=== PATIENT | female | born 1995 | race Caucasian/White ===

== ENCOUNTER 2019-04-23 22:56 | Emergency (ER) | payer OTHER ==
[2019-04-23] MEDS ORDERED: SODIUM CHLORIDE 0.9% 1,000 ML IV STA (23:17)
--- NOTE | 2019-04-23 23:18 | ED ---
General Adult HPI - General Chief complaint: Syncope Stated complaint: Syncope Time Seen by Provider: 04/23/19 23:04 Source: patient Mode of arrival: wheelchair Limitations: no limitations - History of Present Illness Initial comments: Patient is a 24-year-old female who significant past medical history presenting to emergency Department with chief complaint of a syncopal episode. Patient states the incident occurred about 2 hours prior to ED arrival. Patient states that she stood up, felt dizzy, vomited and felt like she was going to pass out. She called her from the other room and when he came in, the patient was already on ground. states the patient did not have a traumatic fall as she was able to go down gradually. states that she had some confusion for a few seconds after the syncopal episode. Denies any shaking episodes. Patient denies a history of epilepsy. Patient states there is low probability for . Currently, patient does report mild lightheadedness but denies any dizziness. She does report some right-sided chest tightness without any radiation. Denies any shortness of breath or cough. Denies definite Episodes or blurry vision. - Related Data Allergies Allergy/AdvReac Type Severity Reaction Status Date / Time No Known Allergies Allergy Verified 04/23/19 23:02 Review of Systems ROS Statement: Those systems with pertinent positive or pertinent negative responses have been documented in the HPI. ROS Other: All systems not noted in ROS Statement are negative. Past Medical History Past Medical History: GERD/Reflux History of Any Multi-Drug Resistant Organisms: None Reported Past Surgical History: No Surgical Hx Reported Past Psychological History: Anxiety Smoking Status: Current every day smoker Past Alcohol Use History: Rare Past Drug Use History: Marijuana General Exam Limitations: no limitations General appearance: alert, in no apparent distress Head exam: Present: atraumatic, normocephalic, normal inspection Eye exam: Present: normal appearance, PERRL, EOMI Pupils: Present: normal accommodation ENT exam: Present: normal exam, normal oropharynx, mucous membranes moist, TM's normal bilaterally, normal external ear exam Neck exam: Present: normal inspection, full ROM Respiratory exam: Present: normal lung sounds bilaterally. Absent: wheezes, rales, chest wall tenderness Cardiovascular Exam: Present: regular rate, normal rhythm, normal heart sounds Extremities exam: Present: normal inspection, full ROM Back exam: Present: normal inspection, full ROM Neurological exam: Present: alert, oriented X3, CN II-XII intact, normal gait Psychiatric exam: Present: normal affect, normal mood Skin exam: Present: warm, dry, intact, normal color Course Vital Signs 04/23/19 04/23/19 04/24/19 22:59 23:45 01:04 Temperature 99.1 F 98.0 F Pulse Rate 87 80 Respiratory 20 18 Rate Blood Pressure 89/53 115/70 101/69 O2 Sat by Pulse 98 96 Oximetry EKG Findings - EKG Comments: EKG Findings:: Sinus rhythm, first-degree AV block. Ventricular rate 88, GA interval 202, QRS duration 90, QTc 425. Medical Decision Making - Medical Decision Making Patient is a 24-year-old female no significant past medical history presenting to emergency Department with a chief complaint of a syncopal episode. Patient did have one syncopal episodes with no postictal state. This occurred after she stood up and vomited. Patient has no previous history of seizures or syncopal episodes. Physical examination is unremarkable. Patient is only complaining of mild lightheadedness at the moment. EKG shows normal sinus rhythm with first- degree AV block. On initial evaluation patient is slightly hypotensive. Patient given fluids. Reevaluation patient reports feeling better. CBC shows mild leukocytosis which I suspect is secondary to the emesis. Initial troponin is negative. Chest x-rays unremarkable. Patient is not . I suspect the patient had either a vasovagal episode or orthostatic hypotension which cau ses her to have a syncopal episode. Patient did have slight ketones in the urine suggesting possible dehydration. Patient advised to follow-up with primary care. Strict return parameters were thoroughly discussed with patient was understanding and agreeable. Case discussed with physician. - Lab Data Result diagrams: 04/23/19 23:41 04/23/19 23:41 Lab Results 04/23/19 04/23/19 04/23/19 Range/Units 23:41 23:41 23:41 WBC 12.6 H (3.8-10.6) k/uL RBC 3.96 (3.80-5.40) m/uL Hgb 12.2 (11.4-16.0) gm/dL Hct 36.6 (34.0-46.0) % MCV 92.4 (80.0-100.0) fL MCH 30.8 (25.0-35.0) pg MCHC 33.4 (31.0-37.0) g/dL RDW 12.4 (11.5-15.5) % Plt Count 158 (150-450) k/uL Neutrophils % 87 % Lymphocytes % 7 % Monocytes % 3 % Eosinophils % 1 % Basophils % 1 % Neutrophils # 11.1 H (1.3-7.7) k/uL Lymphocytes # 0.9 L (1.0-4.8) k/uL Monocytes # 0.4 (0-1.0) k/uL Eosinophils # 0.1 (0-0.7) k/uL Basophils # 0.1 (0-0.2) k/uL Sodium 137 (137-145) mmol/L Potassium 3.8 (3.5-5.1) mmol/L Chloride 105 (98-107) mmol/L Carbon Dioxide 24 (22-30) mmol/L Anion Gap 8 mmol/L BUN 11 (7-17) mg/dL Creatinine 0.76 (0.52-1.04) mg/dL Est GFR (CKD-EPI)AfAm >90 (>60 ml/min/1.73 sqM) Est GFR (CKD-EPI)NonAf >90 (>60 ml/min/1.73 sqM) Glucose 126 H (74-99) mg/dL Calcium 9.1 (8.4-10.2) mg/dL Total Bilirubin 0.4 (0.2-1.3) mg/dL AST 32 (14-36) U/L ALT 24 (4-34) U/L Alkaline Phosphatase 38 (38-126) U/L Troponin I <0.012 (0.000-0.034) ng/mL Total Protein 6.3 (6.3-8.2) g/dL Albumin 4.0 (3.5-5.0) g/dL Urine Color Urine Appearance (Clear) Urine pH (5.0-8.0) Ur Specific [place] (1.001-1.035) Urine Protein (Negative) Urine Glucose (UA) (Negative) Urine Ketones (Negative) Urine Blood (Negative) Urine Nitrite (Negative) Urine Bilirubin (Negative) Urine Urobilinogen (<2.0) mg/dL Ur Leukocyte Esterase (Negative) Urine RBC (0-5) /hpf Urine WBC (0-5) /hpf Ur Squamous Epith Cells (0-4) /hpf Urine Bacteria (None) /hpf Hyaline Casts (0-2) /lpf Urine Mucus (None) /hpf Urine HCG, Qual (Not Detectd) 04/23/19 04/23/19 Range/Units 23:41 23:41 WBC (3.8-10.6) k/uL RBC (3.80-5.40) m/uL Hgb (11.4-16.0) gm/dL Hct (34.0-46.0) % MCV (80.0-100.0) fL MCH (25.0-35.0) pg MCHC (31.0-37.0) g/dL RDW (11.5-15.5) % Plt Count (150-450) k/uL Neutrophils % % Lymphocytes % % Monocytes % % Eosinophils % % Basophils % % Neutrophils # (1.3-7.7) k/uL Lymphocytes # (1.0-4.8) k/uL Monocytes # (0-1.0) k/uL Eosinophils # (0-0.7) k/uL Basophils # (0-0.2) k/uL Sodium (137-145) mmol/L Potassium (3.5-5.1) mmol/L Chloride (98-107) mmol/L Carbon Dioxide (22-30) mmol/L Anion Gap mmol/L BUN (7-17) mg/dL Creatinine (0.52-1.04) mg/dL Est GFR (CKD-EPI)AfAm (>60 ml/min/1.73 sqM) Est GFR (CKD-EPI)NonAf (>60 ml/min/1.73 sqM) Glucose (74-99) mg/dL Calcium (8.4-10.2) mg/dL Total Bilirubin (0.2-1.3) mg/dL AST (14-36) U/L ALT (4-34) U/L Alkaline Phosphatase (38-126) U/L Troponin I (0.000-0.034) ng/mL Total Protein (6.3-8.2) g/dL Albumin (3.5-5.0) g/dL Urine Color Yellow Urine Appearance Cloudy H (Clear) Urine pH 6.5 (5.0-8.0) Ur Specific [place] 1.019 (1.001-1.035) Urine Protein 1+ H (Negative) Urine Glucose (UA) Negative (Negative) Urine Ketones Trace H (Negative) Urine Blood Negative (Negative) Urine Nitrite Negative (Negative) Urine Bilirubin Negative (Negative) Urine Urobilinogen 3.0 (<2.0) mg/dL Ur Leukocyte Esterase Trace H (Negative) Urine RBC 2 (0-5) /hpf Urine WBC 3 (0-5) /hpf Ur Squamous Epith Cells 7 H (0-4) /hpf Urine Bacteria Rare H (None) /hpf Hyaline Casts 101 H (0-2) /lpf Urine Mucus Many H (None) /hpf Urine HCG, Qual Not Detected (Not Detectd) Disposition Clinical Impression: Syncopal episodes Disposition: HOME SELF-CARE Condition: Stable Instructions (If sedation given, give patient instructions): Syncope (DC) Additional Instructions: Please follow up with primary care. Please return to emergency department if symptoms worsen. Is patient prescribed a controlled substance at d/c from ED?: No Referrals: Nonstaff,Physician [Primary Care Provider] - 1-2 days Time of Disposition: 01:13
[2019-04-23 23:50] LABS: Basophils # (A) 0.1 k/uL (0-0.2); Basophils % (A) 1 %; Eosinophils # (A) 0.1 k/uL (0-0.7); Eosinophils % (A) 1 %; HCT 36.6 % (34.0-46.0); HGB 12.2 gm/dL (11.4-16.0); Lymphocytes # (A) 0.9 k/uL (1.0-4.8); Lymphocytes % (A) 7 %; MCH 30.8 pg (25.0-35.0); MCHC 33.4 g/dL (31.0-37.0); MCV 92.4 fL (80.0-100.0); Mean Platelet Volume 8.1; Monocytes # (A) 0.4 k/uL (0-1.0); Monocytes % (A) 3 %; Neutrophils # (A) 11.1 k/uL (1.3-7.7); Neutrophils % (A) 87 %; Platelet Count 158 k/uL (150-450); RBC 3.96 m/uL (3.80-5.40); RDW 12.4 % (11.5-15.5); WBC 12.6 k/uL (3.8-10.6)
[2019-04-24] LABS: ALT 24 U/L (4-34); AST 32 U/L (14-36); African American GFR (CKD) >90 (>60 ml/min/1.73 sqM); Alkaline Phosphatase 38 U/L (38-126); Anion Gap 8 mmol/L; Blood Urea Nitrogen 11 mg/dL (7-17); Calcium 9.1 mg/dL (8.4-10.2); Carbon Dioxide 24 mmol/L (22-30); Chloride 105 mmol/L (98-107); Glucose 126 mg/dL (74-99); Non-African American GFR(CKD) >90 (>60 ml/min/1.73 sqM); Potassium 3.8 mmol/L (3.5-5.1); Sodium 137 mmol/L (137-145); Total Bilirubin 0.4 mg/dL (0.2-1.3); Total Protein 6.3 g/dL (6.3-8.2)
[2019-04-24 00:07] LABS: Appearance,Urine Cloudy (Clear); Bacteria,Urine Rare /hpf; Bilirubin,Urine Negative (Negative); Blood,Urine Negative (Negative); Color,Urine Yellow; Glucose,Urine (UA) Negative (Negative); Hyaline Casts,Urine 101 /lpf (0-2); Ketones,Urine Trace (Negative); Leukocyte Esterase,Urine Trace (Negative); Mucus,Urine Many /hpf; Nitrite,Urine Negative (Negative); PH, Urine 6.5 (5.0-8.0); Protein,Urine 1+ (Negative); RBC,Urine 2 /hpf (0-5); Specific Gravity,Urine 1.019 (1.001-1.035); Squamous Epithelial Cell,Urine 7 /hpf (0-4); WBC,Urine 3 /hpf (0-5)
--- NOTE | 2019-04-24 00:27 | XR ---
EXAMINATION TYPE: XR chest 2V DATE OF EXAM: 04/24/2019 COMPARISON: NONE HISTORY: Syncope TECHNIQUE: FINDINGS: Heart and mediastinum are normal. Lungs are clear. Diaphragm is normal. Bony thorax appears normal. There are chest leads. IMPRESSION: Normal chest.
[2019-04-24 01:07] VITALS: BP 101/69; PULSE 80; RESP 18; TEMP 98
== END 2019-04-24 01:20 | disposition home or self-care (01) ==
LOC: EC 22:56
DX: R55 Syncope and collapse (principal); I44.0 Atrioventricular block, first degree; I95.9 Hypotension, unspecified; D72.829 Elevated white blood cell count, unspecified; R82.4 Acetonuria; R11.10 Vomiting, unspecified; R07.89 Other chest pain; F17.200 Nicotine dependence, unspecified, uncomplicated; Z87.19 Personal history of other diseases of the digestive system
CPT/HCPCS: 36415; 71046; 80053; 81001; 81025; 84484; 85025; 85610; 85730; 93005; 96360; 96361; 99284

== ENCOUNTER → 2020-04-08 | Outpatient (CLI) | payer OTHER ==
--- NOTE | 2020-04-08 15:17 | XR ---
EXAMINATION TYPE: XR knee complete RT DATE OF EXAM: 04/08/2020 COMPARISON: None HISTORY: Sprain TECHNIQUE: Three-view right knee FINDINGS: No acute fracture or dislocation is evident. Joint spaces are preserved. Soft tissues are n ormal. No joint effusion is evident. Follow-up studies can be performed 7-10 days from acute trauma for continued pain. IMPRESSION: 1. Normal three-view right knee
== END | disposition home or self-care (01) ==
LOC: RADXRMAIN 14:39
PROVIDERS: ATTEND Emergency Medicine
DX: S83.8X1A Sprain of other specified parts of right knee, initial encounter (principal)

== ENCOUNTER 2020-10-06 07:25 | Emergency (ER) | payer OTHER ==
[2020-10-06 07:31] VITALS: RESP 18
[2020-10-06] MEDS ORDERED: ONDANSETRON 4 MG/2 ML VIAL IVP STA (07:39)
[2020-10-06] MEDS ORDERED: SODIUM CHLORIDE 0.9% 1,000 ML IV STA (07:39)
[2020-10-06] MEDS ORDERED: MAG HYDROX/AL HYDROX/SIMETH 30 ML, HYOSCYAMINE ELIXIR 10 ML, LIDOCAINE VISCOUS 2% 10 ML PO STA ×3 (07:40)
[2020-10-06] MEDS ORDERED: FAMOTIDINE 20 MG/2 ML VIAL IV STA (07:40)
--- NOTE | 2020-10-06 08:17 | ED ---
General Adult HPI - General Chief complaint: Abdominal Pain Stated complaint: Vomiting/Abd Pain Time Seen by Provider: 10/06/20 07:32 Source: patient, RN notes reviewed Mode of arrival: wheelchair Limitations: no limitations - History of Present Illness Initial comments: 75-year-old female with a past medical history of GERD presents to the emergency room for a chief complaint of abdominal pain. Patient states for the past 3 days she has had nausea and vomiting as well as abdominal pain. States the pain is in the upper abdomen. Patient states she has had this before and was told she had GERD. Patient reports she has been taking medications for GERD and it was getting better however worsen again. Denies fevers or chills. Patient was seen at another ER yesterday in [place] and had a CAT scan with contrast on which we will attempt to obtain.Patient has no other complaints at this time including shortness of breath, chest pain, nausea or vomiting, headache, or visual changes. - Related Data Home Medications Medication Instructions Recorded Confirmed Famotidine [Pepcid] 40 mg PO HS 10/06/20 10/06/20 Hyoscyamine Sulfate [Hyoscyamine 0.125 mg SL Q4H PRN 10/06/20 10/06/20 Sulfate SL] Ondansetron Odt [Zofran Odt] 4 mg PO Q8H PRN 10/06/20 10/06/20 RX: Omeprazole 40 mg PO HS 10/06/20 10/06/20 Previous Rx's Medication Instructions Recorded Dicyclomine [Bentyl] 20 mg PO TID PRN #20 tablet 10/06/20 Allergies Allergy/AdvReac Type Severity Reaction Status Date / Time No Known Allergies Allergy Verified 10/06/20 07:58 Review of Systems ROS Statement: Those systems with pertinent positive or pertinent negative responses have been documented in the HPI. ROS Other: All systems not noted in ROS Statement are negative. Past Medical History Past Medical History: GERD/Reflux History of Any Multi-Drug Resistant Organisms: None Reported Past Surgical History: No Surgical Hx Reported Past Psychological History: Anxiety Smoking Status: Current every day smoker Past Alcohol Use History: Rare Past Drug Use History: Marijuana General Exam Limitations: no limitations General appearance: alert, in no apparent distress Head exam: Present: atraumatic, normocephalic, normal inspection Eye exam: Present: normal appearance, PERRL, EOMI. Absent: scleral icterus, conjunctival injection, periorbital swelling ENT exam: Present: normal exam, mucous membranes moist Neck exam: Present: normal inspection, full ROM. Absent: tenderness, meningismus, lymphadenopathy Respiratory exam: Present: normal lung sounds bilaterally. Absent: respiratory distress, wheezes, rales, rhonchi, stridor Cardiovascular Exam: Present: regular rate, normal rhythm, normal heart sounds. Absent: systolic murmur, diastolic murmur, rubs, gallop, clicks GI/Abdominal exam: Present: soft, tenderness (epigastric tenderness, no lower abdominal tenderness), normal bowel sounds. Absent: distended, guarding, rebound, rigid Course Vital Signs 10/06/20 07:28 Temperature 98.2 F Pulse Rate 63 Respiratory 18 Rate Blood Pressure 153/71 O2 Sat by Pulse 100 Oximetry Medical Decision Making - Medical Decision Making Vitals Are stable. Abdominal exam pertinent for epigastric tenderness. No lower abdominal tenderness. CBC unremarkable. Patient doesn't have evidence of dehydration and CMP with a CO2 of 20, BUN of 18, and ketones in urine. She was given a liter of fluid. Gallbladder ultrasound was limited however noticing abnormality appreciated. Time bile duct is within normal limits. X are KUB showed an overall nonobjective bowel gas pattern. No convincing evidence for pneumoperitoneum. I did attempt to obtain CAT scan with contrast from yesterday from previous hospital however was unable to do so after multiple attempts. Patient reports this is normal. Patient was reevaluated and did have significant improvement in symptoms. Pain is resolved. She does still have some slight nausea and was given an additional dose of Reglan. Patient is stable for discharge home and follow-up with outpatient doctor. She'll return for any worsening symptoms. - Lab Data Result diagrams: 10/06/20 07:46 10/06/20 07:46 Lab Results 10/06/20 10/06/20 10/06/20 Range/Units 07:46 07:46 07:46 WBC 6.0 (3.8-10.6) k/uL RBC 4.57 (3.80-5.40) m/uL Hgb 14.4 (11.4-16.0) gm/dL Hct 41.2 (34.0-46.0) % MCV 90.2 (80.0-100.0) fL MCH 31.5 (25.0-35.0) pg MCHC 34.9 (31.0-37.0) g/dL RDW 12.4 (11.5-15.5) % Plt Count 192 (150-450) k/uL MPV 7.9 Neutrophils % 69 % Lymphocytes % 21 % Monocytes % 7 % Eosinophils % 1 % Basophils % 1 % Neutrophils # 4.1 (1.3-7.7) k/uL Lymphocytes # 1.3 (1.0-4.8) k/uL Monocytes # 0.4 (0-1.0) k/uL Eosinophils # 0.0 (0-0.7) k/uL Basophils # 0.0 (0-0.2) k/uL Sodium 136 L (137-145) mmol/L Potassium 4.2 (3.5-5.1) mmol/L Chloride 104 (98-107) mmol/L Carbon Dioxide 20 L (22-30) mmol/L Anion Gap 12 mmol/L BUN 18 H (7-17) mg/dL Creatinine 0.63 (0.52-1.04) mg/dL Est GFR (CKD-EPI)AfAm >90 (>60 ml/min/1.73 sqM) Est GFR (CKD-EPI)NonAf >90 (>60 ml/min/1.73 sqM) Glucose 105 H (74-99) mg/dL Calcium 9.7 (8.4-10.2) mg/dL Total Bilirubin 0.5 (0.2-1.3) mg/dL AST 42 H (14-36) U/L ALT 27 (4-34) U/L Alkaline Phosphatase 45 (38-126) U/L Total Protein 7.0 (6.3-8.2) g/dL Albumin 4.4 (3.5-5.0) g/dL Amylase 49 (30-110) U/L Lipase 194 (23-300) U/L Urine Color Yellow Urine Appearance Cloudy H (Clear) Urine pH 6.5 (5.0-8.0) Ur Specific [place] 1.027 (1.001-1.035) Urine Protein 1+ H (Negative) Urine Glucose (UA) Negative (Negative) Urine Ketones 3+ H (Negative) Urine Blood Moderate H (Negative) Urine Nitrite Negative (Negative) Urine Bilirubin Negative (Negative) Urine Urobilinogen 4.0 (<2.0) mg/dL Ur Leukocyte Esterase Negative (Negative) Urine RBC 16 H (0-5) /hpf Urine WBC 2 (0-5) /hpf Ur Squamous Epith Cells 2 (0-4) /hpf Amorphous Sediment Occasional H (None) /hpf Urine Mucus Few H (None) /hpf Urine HCG, Qual (Not Detectd) 10/06/20 Range/Units 07:46 WBC (3.8-10.6) k/uL RBC (3.80-5.40) m/uL Hgb (11.4-16.0) gm/dL Hct (34.0-46.0) % MCV (80.0-100.0) fL MCH (25.0-35.0) pg MCHC (31.0-37.0) g/dL RDW (11.5-15.5) % Plt Count (150-450) k/uL MPV Neutrophils % % Lymphocytes % % Monocytes % % Eosinophils % % Basophils % % Neutrophils # (1.3-7.7) k/uL Lymphocytes # (1.0-4.8) k/uL Monocytes # (0-1.0) k/uL Eosinophils # (0-0.7) k/uL Basophils # (0-0.2) k/uL Sodium (137-145) mmol/L Potassium (3.5-5.1) mmol/L Chloride (98-107) mmol/L Carbon Dioxide (22-30) mmol/L Anion Gap mmol/L BUN (7-17) mg/dL Creatinine (0.52-1.04) mg/dL Est GFR (CKD-EPI)AfAm (>60 ml/min/1.73 sqM) Est GFR (CKD-EPI)NonAf (>60 ml/min/1.73 sqM) Glucose (74-99) mg/dL Calcium (8.4-10.2) mg/dL Total Bilirubin (0.2-1.3) mg/dL AST (14-36) U/L ALT (4-34) U/L Alkaline Phosphatase (38-126) U/L Total Protein (6.3-8.2) g/dL Albumin (3.5-5.0) g/dL Amylase (30-110) U/L Lipase (23-300) U/L Urine Color Urine Appearance (Clear) Urine pH (5.0-8.0) Ur Specific [place] (1.001-1.035) Urine Protein (Negative) Urine Glucose (UA) (Negative) Urine Ketones (Negative) Urine Blood (Negative) Urine Nitrite (Negative) Urine Bilirubin (Negative) Urine Urobilinogen (<2.0) mg/dL Ur Leukocyte Esterase (Negative) Urine RBC (0-5) /hpf Urine WBC (0-5) /hpf Ur Squamous Epith Cells (0-4) /hpf Amorphous Sediment (None) /hpf Urine Mucus (None) /hpf Urine HCG, Qual Not Detected (Not Detectd) Disposition Clinical Impression: Nausea & vomiting, Abdominal pain Disposition: HOME SELF-CARE Condition: Good Instructions (If sedation given, give patient instructions): Abdominal Pain (ED), Acute Nausea and Vomiting (ED) Additional Instructions: Please take your Zofran at home for nausea. Take Bentyl for pain. Continue to take your medications for GERD. Follow up with GI. Return to the emergency room for any worsening symptoms. Prescriptions: Dicyclomine [Bentyl] 20 mg PO TID PRN #20 tablet PRN Reason: abdominal pain Is patient prescribed a controlled substance at d/c from ED?: No Referrals: Jason Gayle MD [Primary Care Provider] - 1-2 days Radha Green MD [STAFF PHYSICIAN] - 1-2 days Time of Disposition: 10:01
[2020-10-06 08:19] LABS: Amorphous Sediment,Urine Occasional /hpf; Appearance,Urine Cloudy (Clear); Bilirubin,Urine Negative (Negative); Blood,Urine Moderate (Negative); Color,Urine Yellow; Glucose,Urine (UA) Negative (Negative); Ketones,Urine 3+ (Negative); Leukocyte Esterase,Urine Negative (Negative); Mucus,Urine Few /hpf; Nitrite,Urine Negative (Negative); PH, Urine 6.5 (5.0-8.0); Protein,Urine 1+ (Negative); RBC,Urine 16 /hpf (0-5); Specific Gravity,Urine 1.027 (1.001-1.035); Squamous Epithelial Cell,Urine 2 /hpf (0-4); WBC,Urine 2 /hpf (0-5)
[2020-10-06 08:32] LABS: Basophils % (A) 1 %; Eosinophils % (A) 1 %; HCT 41.2 % (34.0-46.0); HGB 14.4 gm/dL (11.4-16.0); Lymphocytes # (A) 1.3 k/uL (1.0-4.8); Lymphocytes % (A) 21 %; MCH 31.5 pg (25.0-35.0); MCHC 34.9 g/dL (31.0-37.0); MCV 90.2 fL (80.0-100.0); Mean Platelet Volume 7.9; Monocytes # (A) 0.4 k/uL (0-1.0); Monocytes % (A) 7 %; Neutrophils # (A) 4.1 k/uL (1.3-7.7); Neutrophils % (A) 69 %; Platelet Count 192 k/uL (150-450); RBC 4.57 m/uL (3.80-5.40); RDW 12.4 % (11.5-15.5)
[2020-10-06] MEDS ORDERED: HYDROmorphone 0.5 MG/0.5 ML SYRINGE IVP STA (08:44)
[2020-10-06 08:45] LABS: African American GFR (CKD) >90 (>60 ml/min/1.73 sqM); Anion Gap 12 mmol/L; Blood Urea Nitrogen 18 mg/dL (7-17); Calcium 9.7 mg/dL (8.4-10.2); Carbon Dioxide 20 mmol/L (22-30); Chloride 104 mmol/L (98-107); Glucose 105 mg/dL (74-99); Non-African American GFR(CKD) >90 (>60 ml/min/1.73 sqM); Potassium 4.2 mmol/L (3.5-5.1); Sodium 136 mmol/L (137-145)
[2020-10-06 08:46] LABS: ALT 27 U/L (4-34); AST 42 U/L (14-36); Albumin 4.4 g/dL (3.5-5.0); Alkaline Phosphatase 45 U/L (38-126); Amylase 49 U/L (30-110); Lipase 194 U/L (23-300); Total Bilirubin 0.5 mg/dL (0.2-1.3)
--- NOTE | 2020-10-06 09:12 | US ---
EXAMINATION TYPE: US gallbladder DATE OF EXAM: 10/06/2020 COMPARISON: NONE CLINICAL HISTORY: pain RUQ. Pt states ABD pain x 3 days EXAM MEASUREMENTS: Liver Length: 13.1 cm Gallbladder Wall: 0.2 cm CBD: 0.2 cm Right Kidney: 9.6 x 4.3 x 4.5 cm Pt scanned sitting upright/ pt in immense pain and vomiting during exam/ somewhat limited exam Pancreas: wnl Liver: Visualized portions appeared wnl Gallbladder: wnl Evidence for sonographic Devries's sign: Yes CBD: wnl Right Kidney: Limited views appeared wnl IMPRESSION: Limited study however no distinct abnormality appreciated with certainty.
--- NOTE | 2020-10-06 09:24 | XR ---
EXAMINATION TYPE: XR KUB DATE OF EXAM: 10/06/2020 COMPARISON: NONE HISTORY: Pain TECHNIQUE: Single supine KUB image of the abdomen is obtained FINDINGS: Small bowel demonstrates no evidence for dilatation or air fluid levels. Gas and fecal material is seen in non-distended colon. No convincing evidence for pneumoperitoneum. No unusual calcifications. The lung bases are clear. The osseous structures are intact. IMPRESSION: 1. Overall nonobstructive bowel gas pattern.
[2020-10-06] MEDS ORDERED: diphenhydrAMINE 50 MG/ML 1 ML VIAL IVP STA (09:38)
[2020-10-06] MEDS ORDERED: METOCLOPRAMIDE 5 MG/ML 2 ML VIAL IVP STA (09:38)
[2020-10-06 10:36] VITALS: BP 102/65; PULSE 51; TEMP 97.6
== END 2020-10-06 10:23 | disposition home or self-care (01) ==
LOC: EC 07:25
DX: R11.2 Nausea with vomiting, unspecified (principal); R10.10 Upper abdominal pain, unspecified; K21.9 Gastro-esophageal reflux disease without esophagitis; F17.200 Nicotine dependence, unspecified, uncomplicated; Z79.899 Other long term (current) drug therapy
CPT/HCPCS: 36415; 80053; 82150; 83690; 85025; 81001; 81025; 74018; 76705; 99284; 96374; 96375; 96361; J1200; J2765; J2405; J1170

== ENCOUNTER 2020-10-08 08:53 | Emergency (ER) | payer OTHER ==
[2020-10-08] MEDS ORDERED: diphenhydrAMINE 50 MG/ML 1 ML VIAL IVP STA (09:18)
[2020-10-08] MEDS ORDERED: METOCLOPRAMIDE 5 MG/ML 2 ML VIAL IVP STA ×2 (09:18→13:23)
[2020-10-08] MEDS ORDERED: HYDROmorphone 0.5 MG/0.5 ML SYRINGE IVP STA ×2 (09:18→12:47)
[2020-10-08] MEDS ORDERED: FAMOTIDINE 20 MG/2 ML VIAL IV STA (09:18)
[2020-10-08] MEDS ORDERED: SODIUM CHLORIDE 0.9% 2,000 ML IV STA (09:18)
--- NOTE | 2020-10-08 09:25 | ED ---
General Adult HPI - General Chief complaint: Abdominal Pain Stated complaint: Revisit/Abd pain Time Seen by Provider: 10/08/20 09:02 Source: patient Mode of arrival: ambulatory Limitations: no limitations - History of Present Illness Initial comments: 25-year-old female with a past medical history of GERD presents to the emergency room for abdominal pain. Patient states she has had abdominal pain for about a week now. Patient reports it is in her epigastric area. Patient has also had nausea vomiting. Patient was seen over the weekend at their hospital in [place] and had a CAT scan performed. At that time I did attempt to get the results and was unable to do so. She was seen in our ER 2 days ago and had an x-ray and ultrasound of the gallbladder that were negative. Patient states her pain and symptoms did improve for the last day however today worsened again. She was seen her primary care's office who sent her over thinking that she could benefit from admission with scope.Patient has no other complaints at this time including shortness of breath, chest pain, headache, or visual changes. - Related Data Home Medications Medication Instructions Recorded Confirmed Famotidine [Pepcid] 40 mg PO HS 10/06/20 10/08/20 Hyoscyamine Sulfate [Hyoscyamine 0.125 mg SL Q4H PRN 10/06/20 10/08/20 Sulfate SL] Omeprazole 40 mg PO HS 10/06/20 10/08/20 Ondansetron Odt [Zofran Odt] 4 mg PO Q8H PRN 10/06/20 10/08/20 Previous Rx's Medication Instructions Recorded Dicyclomine [Bentyl] 20 mg PO TID PRN #20 tablet 10/06/20 Metoclopramide [Reglan] 10 mg PO QID PRN #20 tab 10/08/20 Allergies Allergy/AdvReac Type Severity Reaction Status Date / Time No Known Allergies Allergy Verified 10/08/20 11:32 Review of Systems ROS Statement: Those systems with pertinent positive or pertinent negative responses have been documented in the HPI. ROS Other: All systems not noted in ROS Statement are negative. Past Medical History Past Medical History: GERD/Reflux History of Any Multi-Drug Resistant Organisms: None Reported Past Surgical History: No Surgical Hx Reported Past Psychological History: Anxiety Smoking Status: Current every day smoker Past Alcohol Use History: Rare Past Drug Use History: Marijuana General Exam Limitations: no limitations General appearance: alert, in no apparent distress Head exam: Present: atraumatic, normocephalic, normal inspection Eye exam: Present: normal appearance, PERRL, EOMI. Absent: scleral icterus, conjunctival injection, periorbital swelling ENT exam: Present: normal exam, mucous membranes moist Neck exam: Present: normal inspection, full ROM. Absent: tenderness, meningismus, lymphadenopathy Respiratory exam: Present: normal lung sounds bilaterally. Absent: respiratory distress, wheezes, rales, rhonchi, stridor Cardiovascular Exam: Present: regular rate, normal rhythm, normal heart sounds. Absent: systolic murmur, diastolic murmur, rubs, gallop, clicks GI/Abdominal exam: Present: soft, tenderness (epigastric and upper abdominal tenderness. No lower abdominal tenderness), normal bowel sounds. Absent: distended, guarding, rebound, rigid Course Vital Signs 10/08/20 08:55 Temperature 98.1 F Pulse Rate 60 Respiratory 22 Rate Blood Pressure 148/89 O2 Sat by Pulse 99 Oximetry Medical Decision Making - Medical Decision Making Vitals are stable. Pt presents for upper abdominal pain and nausea vomiting. Return evaluation initiated. CBC shows mild acidosis likely reactive to vomiting. CMP unremarkable. Urinalysis negative for ketones. Patient was g iven pain medications and vomiting, continues to have mild nausea vomiting. Patient was previously sent in by primary care for admission and patient was initially agreeable to this. I did speak with Dr. Dockery who does accept admission. However on speaking with the patient another time she now refuses admission because she does not want to stay overnight. Patient will follow up with GI, does have an appointment coming up in 2 weeks. Will return here for any worsening symptoms. - Lab Data Result diagrams: 10/08/20 09:25 10/08/20 11:17 Lab Results 10/08/20 10/08/20 10/08/20 Range/Units 09:25 09:25 09:25 WBC 12.0 H (3.8-10.6) k/uL RBC 5.06 (3.80-5.40) m/uL Hgb 16.0 (11.4-16.0) gm/dL Hct 45.9 (34.0-46.0) % MCV 90.7 (80.0-100.0) fL MCH 31.5 (25.0-35.0) pg MCHC 34.8 (31.0-37.0) g/dL RDW 12.4 (11.5-15.5) % Plt Count 222 (150-450) k/uL MPV 7.6 Neutrophils % 83 % Lymphocytes % 11 % Monocytes % 3 % Eosinophils % 1 % Basophils % 0 % Neutrophils # 10.0 H (1.3-7.7) k/uL Lymphocytes # 1.3 (1.0-4.8) k/uL Monocytes # 0.4 (0-1.0) k/uL Eosinophils # 0.2 (0-0.7) k/uL Basophils # 0.0 (0-0.2) k/uL Sodium (137-145) mmol/L Potassium (3.5-5.1) mmol/L Chloride (98-107) mmol/L Carbon Dioxide (22-30) mmol/L Anion Gap mmol/L BUN (7-17) mg/dL Creatinine (0.52-1.04) mg/dL Est GFR (CKD-EPI)AfAm (>60 ml/min/1.73 sqM) Est GFR (CKD-EPI)NonAf (>60 ml/min/1.73 sqM) Glucose (74-99) mg/dL Plasma Lactic Acid Paul (0.7-2.0) mmol/L Calcium (8.4-10.2) mg/dL Total Bilirubin (0.2-1.3) mg/dL AST (14-36) U/L ALT (4-34) U/L Alkaline Phosphatase (38-126) U/L Total Protein (6.3-8.2) g/dL Albumin (3.5-5.0) g/dL Amylase (30-110) U/L Lipase (23-300) U/L Urine Color Yellow Urine Appearance Cloudy H (Clear) Urine pH 6.0 (5.0-8.0) Ur Specific [place] 1.025 (1.001-1.035) Urine Protein Trace H (Negative) Urine Glucose (UA) Negative (Negative) Urine Ketones Negative (Negative) Urine Blood Small H (Negative) Urine Nitrite Negative (Negative) Urine Bilirubin Negative (Negative) Urine Urobilinogen 2.0 (<2.0) mg/dL Ur Leukocyte Esterase Small H (Negative) Urine RBC 5 (0-5) /hpf Urine WBC 3 (0-5) /hpf Ur Squamous Epith Cells 3 (0-4) /hpf Calcium Oxalate Crystal Occasional H (None) /hpf Urine Mucus Many H (None) /hpf Urine HCG, Qual Not Detected (Not Detectd) 10/08/20 10/08/20 Range/Units 11:17 11:17 WBC (3.8-10.6) k/uL RBC (3.80-5.40) m/uL Hgb (11.4-16.0) gm/dL Hct (34.0-46.0) % MCV (80.0-100.0) fL MCH (25.0-35.0) pg MCHC (31.0-37.0) g/dL RDW (11.5-15.5) % Plt Count (150-450) k/uL MPV Neutrophils % % Lymphocytes % % Monocytes % % Eosinophils % % Basophils % % Neutrophils # (1.3-7.7) k/uL Lymphocytes # (1.0-4.8) k/uL Monocytes # (0-1.0) k/uL Eosinophils # (0-0.7) k/uL Basophils # (0-0.2) k/uL Sodium 138 (137-145) mmol/L Potassium 3.8 (3.5-5.1) mmol/L Chloride 107 (98-107) mmol/L Carbon Dioxide 23 (22-30) mmol/L Anion Gap 8 mmol/L BUN 13 (7-17) mg/dL Creatinine 0.61 (0.52-1.04) mg/dL Est GFR (CKD-EPI)AfAm >90 (>60 ml/min/1.73 sqM) Est GFR (CKD-EPI)NonAf >90 (>60 ml/min/1.73 sqM) Glucose 118 H (74-99) mg/dL Plasma Lactic Acid Paul 0.7 (0.7-2.0) mmol/L Calcium 8.0 L (8.4-10.2) mg/dL Total Bilirubin 0.3 (0.2-1.3) mg/dL AST 20 (14-36) U/L ALT 20 (4-34) U/L Alkaline Phosphatase 47 (38-126) U/L Total Protein 6.2 L (6.3-8.2) g/dL Albumin 3.9 (3.5-5.0) g/dL Amylase 66 (30-110) U/L Lipase 276 (23-300) U/L Urine Color Urine Appearance (Clear) Urine pH (5.0-8.0) Ur Specific [place] (1.001-1.035) Urine Protein (Negative) Urine Glucose (UA) (Negative) Urine Ketones (Negative) Urine Blood (Negative) Urine Nitrite (Negative) Urine Bilirubin (Negative) Urine Urobilinogen (<2.0) mg/dL Ur Leukocyte Esterase (Negative) Urine RBC (0-5) /hpf Urine WBC (0-5) /hpf Ur Squamous Epith Cells (0-4) /hpf Calcium Oxalate Crystal (None) /hpf Urine Mucus (None) /hpf Urine HCG, Qual (Not Detectd) Disposition Clinical Impression: Abdominal pain, Nausea & vomiting Disposition: HOME SELF-CARE Condition: Good Instructions (If sedation given, give patient instructions): Abdominal Pain (ED) Additional Instructions: Please follow up with primary care in 1-2 days. Follow up with GI as soon as possible. Return to the ER for any worsening symptoms. Prescriptions: Metoclopramide [Reglan] 10 mg PO QID PRN #20 tab PRN Reason: Nausea Is patient prescribed a controlled substance at d/c from ED?: No Referrals: Jason Gayle MD [Primary Care Provider] - 1-2 days Time of Disposition: 13:24
[2020-10-08 09:37] LABS: Basophils % (A) 0 %; Eosinophils # (A) 0.2 k/uL (0-0.7); Eosinophils % (A) 1 %; HCT 45.9 % (34.0-46.0); Lymphocytes # (A) 1.3 k/uL (1.0-4.8); Lymphocytes % (A) 11 %; MCH 31.5 pg (25.0-35.0); MCHC 34.8 g/dL (31.0-37.0); MCV 90.7 fL (80.0-100.0); Mean Platelet Volume 7.6; Monocytes # (A) 0.4 k/uL (0-1.0); Monocytes % (A) 3 %; Neutrophils % (A) 83 %; Platelet Count 222 k/uL (150-450); RBC 5.06 m/uL (3.80-5.40); RDW 12.4 % (11.5-15.5)
[2020-10-08 09:38] LABS: Appearance,Urine Cloudy (Clear); Bilirubin,Urine Negative (Negative); Blood,Urine Small (Negative); Calcium Oxalate Crystals,Urine Occasional /hpf; Color,Urine Yellow; Glucose,Urine (UA) Negative (Negative); Ketones,Urine Negative (Negative); Leukocyte Esterase,Urine Small (Negative); Mucus,Urine Many /hpf; Nitrite,Urine Negative (Negative); Protein,Urine Trace (Negative); RBC,Urine 5 /hpf (0-5); Specific Gravity,Urine 1.025 (1.001-1.035); Squamous Epithelial Cell,Urine 3 /hpf (0-4); WBC,Urine 3 /hpf (0-5)
[2020-10-08] MEDS ORDERED: ONDANSETRON 4 MG/2 ML VIAL IVP STA (10:33)
[2020-10-08 11:43] LABS: ALT 20 U/L (4-34); AST 20 U/L (14-36); African American GFR (CKD) >90 (>60 ml/min/1.73 sqM); Albumin 3.9 g/dL (3.5-5.0); Alkaline Phosphatase 47 U/L (38-126); Amylase 66 U/L (30-110); Anion Gap 8 mmol/L; Blood Urea Nitrogen 13 mg/dL (7-17); Carbon Dioxide 23 mmol/L (22-30); Chloride 107 mmol/L (98-107); Glucose 118 mg/dL (74-99); Lipase 276 U/L (23-300); Non-African American GFR(CKD) >90 (>60 ml/min/1.73 sqM); Potassium 3.8 mmol/L (3.5-5.1); Sodium 138 mmol/L (137-145); Total Bilirubin 0.3 mg/dL (0.2-1.3); Total Protein 6.2 g/dL (6.3-8.2)
[2020-10-08 14:13] VITALS: BP 152/92; PULSE 78; RESP 18; TEMP 98.9
== END 2020-10-08 14:00 | disposition home or self-care (01) ==
LOC: EC 08:53
DX: R10.10 Upper abdominal pain, unspecified (principal); R11.2 Nausea with vomiting, unspecified; K21.9 Gastro-esophageal reflux disease without esophagitis; F17.200 Nicotine dependence, unspecified, uncomplicated; Z79.899 Other long term (current) drug therapy
CPT/HCPCS: 36415; 80053; 82150; 83605; 83690; 85025; 81001; 81025; 99284; 96374 ×2; 96375; 96376; 96361; J1200; J2765; J2405; J1170

== ENCOUNTER 2020-10-09 13:26 | Emergency (ER) | payer OTHER ==
[2020-10-09 13:33] VITALS: RESP 16; TEMP 98.7
[2020-10-09] MEDS: SODIUM CHLORIDE 0.9% 2,000 ML IV STA (14:12)
[2020-10-09] MEDS: SODIUM CHLORIDE 0.9% 500 ML 500 ML IV STA (14:12)
[2020-10-09] MEDS: diphenhydrAMINE 50 MG/ML 1 ML VIAL IVP STA (14:13)
[2020-10-09] MEDS: FAMOTIDINE 20 MG/2 ML VIAL IV STA (14:13)
[2020-10-09 14:41] LABS: Basophils % (A) 1 %; Eosinophils % (A) 0 %; HGB 14.2 gm/dL (11.4-16.0); Lymphocytes # (A) 1.4 k/uL (1.0-4.8); Lymphocytes % (A) 21 %; MCH 31.8 pg (25.0-35.0); MCHC 35.5 g/dL (31.0-37.0); MCV 89.8 fL (80.0-100.0); Mean Platelet Volume 7.8; Monocytes # (A) 0.3 k/uL (0-1.0); Monocytes % (A) 5 %; Neutrophils # (A) 4.7 k/uL (1.3-7.7); Neutrophils % (A) 72 %; Platelet Count 216 k/uL (150-450); RBC 4.45 m/uL (3.80-5.40); RDW 12.5 % (11.5-15.5); WBC 6.5 k/uL (3.8-10.6)
[2020-10-09] MEDS: MAG HYDROX/AL HYDROX/SIMETH 30 ML CUP PO STA (14:45)
[2020-10-09 14:50] LABS: Amorphous Sediment,Urine Rare /hpf; Appearance,Urine Cloudy (Clear); Bilirubin,Urine Negative (Negative); Blood,Urine Trace (Negative); Color,Urine Yellow; Glucose,Urine (UA) Negative (Negative); Ketones,Urine 1+ (Negative); Leukocyte Esterase,Urine Negative (Negative); Mucus,Urine Rare /hpf; Nitrite,Urine Negative (Negative); Protein,Urine Negative (Negative); RBC,Urine 2 /hpf (0-5); Specific Gravity,Urine 1.013 (1.001-1.035); Squamous Epithelial Cell,Urine 1 /hpf (0-4); Urobilinogen,Urine <2.0 mg/dL (<2.0); WBC,Urine 3 /hpf (0-5)
--- NOTE | 2020-10-09 15:02 | ED ---
Abdominal Pain HPI - General Chief Complaint: Abdominal Pain Stated Complaint: Revisit Abd Pain Time Seen by Provider: 10/09/20 13:46 Source: patient, RN notes reviewed Mode of arrival: wheelchair Limitations: no limitations - History of Present Illness Initial Comments: This is a 25-year-old female presents emergency from chief complaint nausea vomiting abdominal pain. Patient has been seen here several days along with been seen at [facility]. Patient states that she has underlying severe reflux. Patient had a EGD 2 years ago. Patient states she has been placed on multiple medications has not seen GI. Patient currently seen Dr. Gayle. Patient went of upper abdominal pain, cramping throughout patient reports no fevers chills no chest pain patient denies any chance . - Related Data Home Medications Medication Instructions Recorded Confirmed Famotidine [Pepcid] 40 mg PO HS 10/06/20 10/09/20 Hyoscyamine Sulfate [Hyoscyamine 0.125 mg SL Q4H PRN 10/06/20 10/09/20 Sulfate SL] Omeprazole 40 mg PO HS 10/06/20 10/09/20 Ondansetron Odt [Zofran Odt] 4 mg PO Q8H PRN 10/06/20 10/09/20 Previous Rx's Medication Instructions Recorded Dicyclomine [Bentyl] 20 mg PO TID PRN #20 tablet 10/06/20 Metoclopramide [Reglan] 10 mg PO QID PRN #20 tab 10/08/20 Promethazine [Phenergan] 25 mg PO Q6HR #14 tablet 10/09/20 Allergies Allergy/AdvReac Type Severity Reaction Status Date / Time No Known Allergies Allergy Verified 10/09/20 14:16 Review of Systems ROS Statement: Those systems with pertinent positive or pertinent negative responses have been documented in the HPI. ROS Other: All systems not noted in ROS Statement are negative. Past Medical History Past Medical History: GERD/Reflux History of Any Multi-Drug Resistant Organisms: None Reported Past Surgical History: No Surgical Hx Reported Past Psychological History: Anxiety Smoking Status: Current every day smoker Past Alcohol Use History: Rare Past Drug Use History: Marijuana General Exam Limitations: no limitations General appearance: alert, in no apparent distress Head exam: Present: atraumatic, normocephalic, normal inspection Neck exam: Present: normal inspection, full ROM. Absent: tenderness, meningismus, lymphadenopathy Respiratory exam: Present: normal lung sounds bilaterally. Absent: respiratory distress, wheezes, rales, rhonchi, stridor Cardiovascular Exam: Present: regular rate, normal rhythm, normal heart sounds. Absent: systolic murmur, diastolic murmur, rubs, gallop, clicks GI/Abdominal exam: Present: soft, tenderness (Mild upper, epigastric), normal bowel sounds. Absent: distended, guarding, rebound, rigid Back exam: Absent: CVA tenderness (R), CVA tenderness (L) Neurological exam: Present: alert Skin exam: Present: warm, dry, intact, normal color. Absent: rash Course Vital Signs 10/09/20 13:30 Temperature 98.7 F Pulse Rate 63 Respiratory 16 Rate Blood Pressure 149/85 O2 Sat by Pulse 100 Oximetry Medical Decision Making - Medical Decision Making 25-year-old presented for recurrent nausea vomiting, GERD symptoms. Patient feels greatly improved after droperidol and Benadryl. Patient's tolerating oral intake. Labs are unremarkable. Patient we discharged after fluid hydration. - Lab Data Result diagrams: 10/09/20 14:01 10/09/20 14:01 Lab Results 10/09/20 10/09/20 10/09/20 Range/Units 14: 14:01 14:01 WBC 6.5 (3.8-10.6) k/uL RBC 4.45 (3.80-5.40) m/uL Hgb 14.2 (11.4-16.0) gm/dL Hct 40.0 (34.0-46.0) % MCV 89.8 (80.0-100.0) fL MCH 31.8 (25.0-35.0) pg MCHC 35.5 (31.0-37.0) g/dL RDW 12.5 (11.5-15.5) % Plt Count 216 (150-450) k/uL MPV 7.8 Neutrophils % 72 % Lymphocytes % 21 % Monocytes % 5 % Eosinophils % 0 % Basophils % 1 % Neutrophils # 4.7 (1.3-7.7) k/uL Lymphocytes # 1.4 (1.0-4.8) k/uL Monocytes # 0.3 (0-1.0) k/uL Eosinophils # 0.0 (0-0.7) k/uL Basophils # 0.0 (0-0.2) k/uL Sodium (137-145) mmol/L Potassium (3.5-5.1) mmol/L Chloride (98-107) mmol/L Carbon Dioxide (22-30) mmol/L Anion Gap mmol/L BUN (7-17) mg/dL Creatinine (0.52-1.04) mg/dL Est GFR (CKD-EPI)AfAm (>60 ml/min/1.73 sqM) Est GFR (CKD-EPI)NonAf (>60 ml/min/1.73 sqM) Glucose (74-99) mg/dL Calcium (8.4-10.2) mg/dL Total Bilirubin (0.2-1.3) mg/dL AST (14-36) U/L ALT (4-34) U/L Alkaline Phosphatase (38-126) U/L Total Protein (6.3-8.2) g/dL Albumin (3.5-5.0) g/dL Amylase (30-110) U/L Lipase (23-300) U/L Urine Color Yellow Urine Appearance Cloudy H (Clear) Urine pH 7.0 (5.0-8.0) Ur Specific [place] 1.013 (1.001-1.035) Urine Protein Negative (Negative) Urine Glucose (UA) Negative (Negative) Urine Ketones 1+ H (Negative) Urine Blood Trace H (Negative) Urine Nitrite Negative (Negative) Urine Bilirubin Negative (Negative) Urine Urobilinogen <2.0 (<2.0) mg/dL Ur Leukocyte Esterase Negative (Negative) Urine RBC 2 (0-5) /hpf Urine WBC 3 (0-5) /hpf Ur Squamous Epith Cells 1 (0-4) /hpf Amorphous Sediment Rare H (None) /hpf Urine Mucus Rare H (None) /hpf Urine HCG, Qual Not Detected (Not Detectd) Urine Opiates Screen (NotDetected) Ur Oxycodone Screen (NotDetected) Urine Methadone Screen (NotDetected) Ur Propoxyphene Screen (NotDetected) Ur Barbiturates Screen (NotDetected) U Tricyclic Antidepress (NotDetected) Ur Phencyclidine Scrn (NotDetected) Ur Amphetamines Screen (NotDetected) U Methamphetamines Scrn (NotDetected) U Benzodiazepines Scrn (NotDetected) Urine Cocaine Screen (NotDetected) U Marijuana (THC) Screen (NotDetected) 10/09/20 10/09/20 Range/Units 14:01 14:03 WBC (3.8-10.6) k/uL RBC (3.80-5.40) m/uL Hgb (11.4-16.0) gm/dL Hct (34.0-46.0) % MCV (80.0-100.0) fL MCH (25.0-35.0) pg MCHC (31.0-37.0) g/dL RDW (11.5-15.5) % Plt Count (150-450) k/uL MPV Neutrophils % % Lymphocytes % % Monocytes % % Eosinophils % % Basophils % % Neutrophils # (1.3-7.7) k/uL Lymphocytes # (1.0-4.8) k/uL Monocytes # (0-1.0) k/uL Eosinophils # (0-0.7) k/uL Basophils # (0-0.2) k/uL Sodium 137 (137-145) mmol/L Potassium 3.7 (3.5-5.1) mmol/L Chloride 102 (98-107) mmol/L Carbon Dioxide 25 (22-30) mmol/L Anion Gap 10 mmol/L BUN 11 (7-17) mg/dL Creatinine 0.72 (0.52-1.04) mg/dL Est GFR (CKD-EPI)AfAm >90 (>60 ml/min/1.73 sqM) Est GFR (CKD-EPI)NonAf >90 (>60 ml/min/1.73 sqM) Glucose 99 (74-99) mg/dL Calcium 9.4 (8.4-10.2) mg/dL Total Bilirubin 0.3 (0.2-1.3) mg/dL AST 20 (14-36) U/L ALT 19 (4-34) U/L Alkaline Phosphatase 40 (38-126) U/L Total Protein 6.6 (6.3-8.2) g/dL Albumin 4.2 (3.5-5.0) g/dL Amylase 37 (30-110) U/L Lipase 257 (23-300) U/L Urine Color Urine Appearance (Clear) Urine pH (5.0-8.0) Ur Specific [place] (1.001-1.035) Urine Protein (Negative) Urine Glucose (UA) (Negative) Urine Ketones (Negative) Urine Blood (Negative) Urine Nitrite (Negative) Urine Bilirubin (Negative) Urine Urobilinogen (<2.0) mg/dL Ur Leukocyte Esterase (Negative) Urine RBC (0-5) /hpf Urine WBC (0-5) /hpf Ur Squamous Epith Cells (0-4) /hpf Amorphous Sediment (None) /hpf Urine Mucus (None) /hpf Urine HCG, Qual (Not Detectd) Urine Opiates Screen Not Detected (NotDetected) Ur Oxycodone Screen Not Detected (NotDetected) Urine Methadone Screen Not Detected (NotDetected) Ur Propoxyphene Screen Not Detected (NotDetected) Ur Barbiturates Screen Not Detected (NotDetected) U Tricyclic Antidepress Not Detected (NotDetected) Ur Phencyclidine Scrn Not Detected (NotDetected) Ur Amphetamines Screen Not Detected (NotDetected) U Methamphetamines Scrn Not Detected (NotDetected) U Benzodiazepines Scrn Not Detected (NotDetected) Urine Cocaine Screen Not Detected (NotDetected) U Marijuana (THC) Screen Detected H (NotDetected) Disposition Clinical Impression: Nausea & vomiting, Gastritis Disposition: HOME SELF-CARE Condition: Stable Instructions (If sedation given, give patient instructions): Gastritis (ED), Acute Nausea and Vomiting (ED) Additional Instructions: Please return to the Emergency Department if symptoms worsen or any other concerns. Prescriptions: Promethazine [Phenergan] 25 mg PO Q6HR #14 tablet Is patient prescribed a controlled substance at d/c from ED?: No Referrals: Jason Gayle MD [Primary Care Provider] - 1-2 days Time of Disposition: 15:56
[2020-10-09 15:05] LABS: Amphetamine Screen,Urine Not Detected (NotDetected); Barbiturate Screen,Urine Not Detected (NotDetected); Benzodiazepines Screen,Urine Not Detected (NotDetected); Cocaine Screen,Urine Not Detected (NotDetected); Methadone Screen, Urine Not Detected (NotDetected); Opiate Screen,Urine Not Detected (NotDetected); Oxycodone Screen, Urine Not Detected (NotDetected); Phencyclidine Screen,Urine Not Detected (NotDetected); Tricyclic Antidepressant,Urine Not Detected (NotDetected); Urn Cannabinoid Scrn Detected (NotDetected)
[2020-10-09 15:05] LABS: ALT 19 U/L (4-34); AST 20 U/L (14-36); African American GFR (CKD) >90 (>60 ml/min/1.73 sqM); Albumin 4.2 g/dL (3.5-5.0); Alkaline Phosphatase 40 U/L (38-126); Amylase 37 U/L (30-110); Anion Gap 10 mmol/L; Blood Urea Nitrogen 11 mg/dL (7-17); Calcium 9.4 mg/dL (8.4-10.2); Carbon Dioxide 25 mmol/L (22-30); Chloride 102 mmol/L (98-107); Glucose 99 mg/dL (74-99); Lipase 257 U/L (23-300); Non-African American GFR(CKD) >90 (>60 ml/min/1.73 sqM); Potassium 3.7 mmol/L (3.5-5.1); Sodium 137 mmol/L (137-145); Total Bilirubin 0.3 mg/dL (0.2-1.3); Total Protein 6.6 g/dL (6.3-8.2)
[2020-10-09 16:35] VITALS: BP 122/80; PULSE 53
== END 2020-10-09 16:35 | disposition home or self-care (01) ==
LOC: EC 13:26
DX: K29.70 Gastritis, unspecified, without bleeding (principal); K21.9 Gastro-esophageal reflux disease without esophagitis; F17.200 Nicotine dependence, unspecified, uncomplicated; Z79.899 Other long term (current) drug therapy
CPT/HCPCS: 36415; 80053; 82150; 83690; 85025; 81001; 81025; 80306; 99284; 96374; 96375; 96361; J1200; J1790

== ENCOUNTER 2020-10-11 13:16 | Emergency (ER) | payer OTHER ==
[2020-10-11] MEDS ORDERED: SODIUM CHLORIDE 0.9% 1,000 ML IV STA (13:48)
[2020-10-11] MEDS ORDERED: FAMOTIDINE 20 MG/2 ML VIAL IV STA (13:49)
[2020-10-11] MEDS ORDERED: HYDROmorphone 0.5 MG/0.5 ML SYRINGE IVP STA (13:50)
--- NOTE | 2020-10-11 13:52 | ED ---
General Adult HPI - General Chief complaint: Abdominal Pain Stated complaint: revisit - abd pain Time Seen by Provider: 10/11/20 13:40 Source: patient, RN notes reviewed, old records reviewed Mode of arrival: wheelchair Limitations: no limitations - History of Present Illness Initial comments: 25-year-old female who had presented with abdominal pain, recurrent episodes of vomiting. She's had several episodes in the past one week. She has been diagno sed with gastritis. Patient was seen in the emergency department and initial plan was for admission however the patient had felt better and requested to go home. Her symptoms have again worsened. She is using marijuana for recurrent indigestion and has been using this for many years. No fever. - Related Data Home Medications Medication Instructions Recorded Confirmed Famotidine [Pepcid] 40 mg PO HS 10/06/20 10/09/20 Hyoscyamine Sulfate [Hyoscyamine 0.125 mg SL Q4H PRN 10/06/20 10/09/20 Sulfate SL] Omeprazole 40 mg PO HS 10/06/20 10/09/20 Ondansetron Odt [Zofran Odt] 4 mg PO Q8H PRN 10/06/20 10/09/20 Previous Rx's Medication Instructions Recorded Dicyclomine [Bentyl] 20 mg PO TID PRN #20 tablet 10/06/20 Metoclopramide [Reglan] 10 mg PO QID PRN #20 tab 10/08/20 Promethazine [Phenergan] 25 mg PO Q6HR #14 tablet 10/09/20 Allergies Allergy/AdvReac Type Severity Reaction Status Date / Time No Known Allergies Allergy Verified 10/11/20 13:27 Review of Systems ROS Statement: Those systems with pertinent positive or pertinent negative responses have been documented in the HPI. ROS Other: All systems not noted in ROS Statement are negative. Past Medical History Past Medical History: GERD/Reflux History of Any Multi-Drug Resistant Organisms: None Reported Past Surgical History: No Surgical Hx Reported Past Psychological History: Anxiety Smoking Status: Current every day smoker Past Alcohol Use History: Rare Past Drug Use History: Marijuana General Exam Limitations: no limitations General appearance: alert, in distress Head exam: Present: atraumatic, normocephalic Eye exam: Present: normal appearance, PERRL ENT exam: Present: normal exam Neck exam: Present: normal inspection. Absent: tenderness, meningismus Respiratory exam: Present: normal lung sounds bilaterally. Absent: respiratory distress, wheezes Cardiovascular Exam: Present: regular rate, normal rhythm GI/Abdominal exam: Present: soft, tenderness. Absent: distended Extremities exam: Present: normal inspection, normal capillary refill. Absent: pedal edema, calf tenderness Neurological exam: Present: alert, oriented X3, CN II-XII intact. Absent: motor sensory deficit Psychiatric exam: Present: anxious Skin exam: Present: warm, dry, intact. Absent: cyanosis, diaphoretic Course Vital Signs 10/11/20 13:23 Temperature 98.9 F Pulse Rate 65 Respiratory 24 Rate Blood Pressure 147/91 O2 Sat by Pulse 98 Oximetry - Reevaluation(s) Reevaluation #1: 10/11/20 13:50 Patient had been treated successfully with droperidol on recent ER visit. We will attempt trial of droperidol and Pepcid, and Dilaudid. EKG Findings - EKG Comments: EKG Findings:: EKG: Normal sinus rhythm, rate of 73, UT interval 150, QRS duration 84, QTC 420, no ST segment elevation. Medical Decision Making - Medical Decision Making 35-year-old female with recurrent episodes of abdominal pain and nausea vomiting. Patient patient's has had several ER visits in the past week and symptoms are consistent with previous evaluation. She has a normal CBC and normal CMP, mild ketosis on urinalysis consistent with some dehydration. She feels completely better after treatment. She was offered observation for symptom control given the recurrent nature of the symptoms but states she would prefer to call gastroenterology on Monday morning and return if symptoms worsen. - Lab Data Result diagrams: 10/11/20 13:49 10/11/20 13:49 Lab Results 10/11/20 10/11/20 10/11/20 Range/Units 13:49 13:49 13:49 WBC 7.7 (3.8-10.6) k/uL RBC 4.97 (3.80-5.40) m/uL Hgb 15.9 (11.4-16.0) gm/dL Hct 44.5 (34.0-46.0) % MCV 89.5 (80.0-100.0) fL MCH 31.9 (25.0-35.0) pg MCHC 35.7 (31.0-37.0) g/dL RDW 12.5 (11.5-15.5) % Plt Count 252 (150-450) k/uL MPV 7.5 Neutrophils % 81 % Lymphocytes % 13 % Monocytes % 2 % Eosinophils % 2 % Basophils % 1 % Neutrophils # 6.3 (1.3-7.7) k/uL Lymphocytes # 1.0 (1.0-4.8) k/uL Monocytes # 0.2 (0-1.0) k/uL Eosinophils # 0.1 (0-0.7) k/uL Basophils # 0.1 (0-0.2) k/uL Sodium 137 (137-145) mmol/L Potassium 3.9 (3.5-5.1) mmol/L Chloride 102 (98-107) mmol/L Carbon Dioxide 25 (22-30) mmol/L Anion Gap 10 mmol/L BUN 17 (7-17) mg/dL Creatinine 0.72 (0.52-1.04) mg/dL Est GFR (CKD-EPI)AfAm >90 (>60 ml/min/1.73 sqM) Est GFR (CKD-EPI)NonAf >90 (>60 ml/min/1.73 sqM) Glucose 113 H (74-99) mg/dL Calcium 9.8 (8.4-10.2) mg/dL Total Bilirubin 0.4 (0.2-1.3) mg/dL AST 19 (14-36) U/L ALT 21 (4-34) U/L Alkaline Phosphatase 47 (38-126) U/L Total Protein 7.0 (6.3-8.2) g/dL Albumin 4.6 (3.5-5.0) g/dL Amylase 49 (30-110) U/L Lipase 271 (23-300) U/L Urine Color Yellow Urine Appearance Turbid H (Clear) Urine pH 6.5 (5.0-8.0) Ur Specific [place] 1.025 (1.001-1.035) Urine Protein Trace H (Negative) Urine Glucose (UA) Negative (Negative) Urine Ketones 2+ H (Negative) Urine Blood Small H (Negative) Urine Nitrite Negative (Negative) Urine Bilirubin Negative (Negative) Urine Urobilinogen 2.0 (<2.0) mg/dL Ur Leukocyte Esterase Negative (Negative) Urine RBC 9 H (0-5) /hpf Urine WBC 3 (0-5) /hpf Ur Squamous Epith Cells 7 H (0-4) /hpf Amorphous Sediment Moderate H (None) /hpf Urine Mucus Many H (None) /hpf Disposition Clinical Impression: Nausea & vomiting, Abdominal pain Disposition: HOME SELF-CARE Condition: Fair Instructions (If sedation given, give patient instructions): Abdominal Pain (ED) Additional Instructions: These return with worsening or changing symptoms. Is patient prescribed a controlled substance at d/c from ED?: No Referrals: Jason Gayle MD [Primary Care Provider] - 1-2 days Radha Green MD [Family Provider] - 1-2 days Time of Disposition: 15:22
[2020-10-11 14:01] LABS: Basophils # (A) 0.1 k/uL (0-0.2); Basophils % (A) 1 %; Eosinophils # (A) 0.1 k/uL (0-0.7); Eosinophils % (A) 2 %; HCT 44.5 % (34.0-46.0); HGB 15.9 gm/dL (11.4-16.0); Lymphocytes % (A) 13 %; MCH 31.9 pg (25.0-35.0); MCHC 35.7 g/dL (31.0-37.0); MCV 89.5 fL (80.0-100.0); Mean Platelet Volume 7.5; Monocytes # (A) 0.2 k/uL (0-1.0); Monocytes % (A) 2 %; Neutrophils # (A) 6.3 k/uL (1.3-7.7); Neutrophils % (A) 81 %; Platelet Count 252 k/uL (150-450); RBC 4.97 m/uL (3.80-5.40); RDW 12.5 % (11.5-15.5); WBC 7.7 k/uL (3.8-10.6)
[2020-10-11 14:08] LABS: Amorphous Sediment,Urine Moderate /hpf; Appearance,Urine Turbid (Clear); Bilirubin,Urine Negative (Negative); Blood,Urine Small (Negative); Color,Urine Yellow; Glucose,Urine (UA) Negative (Negative); Ketones,Urine 2+ (Negative); Leukocyte Esterase,Urine Negative (Negative); Mucus,Urine Many /hpf; Nitrite,Urine Negative (Negative); PH, Urine 6.5 (5.0-8.0); Protein,Urine Trace (Negative); RBC,Urine 9 /hpf (0-5); Specific Gravity,Urine 1.025 (1.001-1.035); Squamous Epithelial Cell,Urine 7 /hpf (0-4); WBC,Urine 3 /hpf (0-5)
[2020-10-11 14:10] LABS: ALT 21 U/L (4-34); AST 19 U/L (14-36); African American GFR (CKD) >90 (>60 ml/min/1.73 sqM); Albumin 4.6 g/dL (3.5-5.0); Alkaline Phosphatase 47 U/L (38-126); Amylase 49 U/L (30-110); Anion Gap 10 mmol/L; Blood Urea Nitrogen 17 mg/dL (7-17); Calcium 9.8 mg/dL (8.4-10.2); Carbon Dioxide 25 mmol/L (22-30); Chloride 102 mmol/L (98-107); Glucose 113 mg/dL (74-99); Lipase 271 U/L (23-300); Non-African American GFR(CKD) >90 (>60 ml/min/1.73 sqM); Potassium 3.9 mmol/L (3.5-5.1); Sodium 137 mmol/L (137-145); Total Bilirubin 0.4 mg/dL (0.2-1.3)
--- NOTE | 2020-10-11 14:19 | XR ---
EXAMINATION TYPE: XR KUB DATE OF EXAM: 10/11/2020 COMPARISON: 10/06/2020 HISTORY: Abdominal pain TECHNIQUE: 2 views upright FINDINGS: There is no sign of intestinal obstruction or pneumoperitoneum. Fecal pattern is normal. Th ere are no pathologic calcifications over the kidneys. Lung bases are clear. There is no sign of a ma ss. IMPRESSION: Nonacute abdomen. No change.
[2020-10-11 15:38] VITALS: BP 105/62; PULSE 64; RESP 18; TEMP 97.9
== END 2020-10-11 15:37 | disposition home or self-care (01) ==
LOC: EC 13:16
DX: R11.2 Nausea with vomiting, unspecified (principal); R10.9 Unspecified abdominal pain; E88.89 Other specified metabolic disorders; E86.0 Dehydration; F17.200 Nicotine dependence, unspecified, uncomplicated; K21.9 Gastro-esophageal reflux disease without esophagitis; Z79.899 Other long term (current) drug therapy
CPT/HCPCS: 36415; 93005; 80053; 82150; 83690; 85025; 81001; 74018; 99284; 96374; 96375; 96361; J1170; J1790

== ENCOUNTER → 2022-04-20 | Outpatient (CLI) | payer OTHER ==
--- NOTE | 2022-04-20 13:37 | XR ---
EXAMINATION TYPE: XR knee complete RT DATE OF EXAM: 04/20/2022 COMPARISON: 04/08/2020 HISTORY: Contusion to patella TECHNIQUE: 3 view right knee FINDINGS: Joint spaces are preserved. No acute fracture or dislocation is evident. Small joint effusi on may be present. The patella as visualized appears intact. Follow up exams can be performed 7-10 d ays from acute trauma for continued pain. MRI can be performed for evaluation of soft tissues. IMPRESSION: 1. No acute osseous abnormality right knee. 2. There may be a small joint effusion present.
== END | disposition home or self-care (01) ==
LOC: RADXRMAIN 13:16
PROVIDERS: ATTEND Emergency Medicine
DX: S80.01XA Contusion of right knee, initial encounter (principal); X58.XXXA Exposure to other specified factors, initial encounter

== ENCOUNTER 2022-12-21 10:21 | Emergency (ER) | payer BC, OTHER ==
--- NOTE | 2022-12-21 10:27 | ED ---
General Adult HPI - General Source: patient, RN notes reviewed Mode of arrival: ambulatory Limitations: no limitations <Joe Hodge - Last Filed: 12/21/22 10:26> <Anuel Muñiz - Last Filed: 12/21/22 16:08> - General Stated complaint: Abd pain/vomiting Time Seen by Provider: 12/21/22 10:27 - History of Present Illness Initial comments: 27-year-old female presents emergency Department chief complaint nausea vomiting. Patient states it ripped was started. He states she had issues with this a few years ago states that she had multiple ER visits. Patient states that she was diagnosed with gastritis. She does have underlying reflux issues. Patient states she is unable to stop vomiting at this point and feels dehydrated. (Joe Hodge) Patient initially evaluated as a quick note. Presents with epigastric abdominal discomfort, nausea, vomiting. Has a history of acid reflex. Has a history of daily marijuana use. States this has happened previously. Was told she has gastritis. Presents for further evaluation of this time. Endorses nausea. Endorses nonbilious nonbloody emesis. Denies constipation, diarrhea. Denies fevers, chills, chest pain, shortness breath, cough. Denies any urinary complaints. Presents for further evaluation of this time. (Anuel Muñiz) - Related Data Home Medications Medication Instructions Recorded Confirmed Famotidine [Pepcid] 40 mg PO HS 10/06/20 12/21/22 Ondansetron Odt [Zofran Odt] 4 mg PO Q8H PRN 10/06/20 12/21/22 Mag/Aluminum/Sod Bicarb/Alginc 1 tab PO ACHS PRN 12/21/22 12/21/22 [Gaviscon 80-14.2 mg Tab Chew] Pantoprazole [Protonix] 40 mg PO DAILY 12/21/22 12/21/22 Previous Rx's Medication Instructions Recorded Ciprofloxacin HCl [Cipro] 500 mg PO BID 5 Days #10 tab 12/21/22 Metoclopramide [Reglan] 5 mg PO BID 5 Days #10 tab 12/21/22 Allergies Allergy/AdvReac Type Severity Reaction Status Date / Time No Known Allergies Allergy Verified 12/21/22 13:19 Review of Systems ROS Other: All systems not noted in ROS Statement are negative. <Joe Hodge - Last Filed: 12/21/22 10:26> ROS Other: All systems not noted in ROS Statement are negative. <Anuel Muñiz - Last Filed: 12/21/22 16:08> ROS Statement: Those systems with pertinent positive or pertinent negative responses have been documented in the HPI. Review of Systems: CONST: Denies fever EYES: Denies blurry vision ENT: Denies nasal congestion C/V: Denies Chest pain RESP: Denies shortness of breath GI: Endorses abdominal pain : Denies dysuria SKIN: Denies rash. MSK: Denies joint pain. NEURO: Denies headache (Anuel Muñiz) Past Medical History Past Medical History: GERD/Reflux History of Any Multi-Drug Resistant Organisms: None Reported Past Surgical History: No Surgical Hx Reported Past Psychological History: Anxiety Smoking Status: Current every day smoker Past Alcohol Use History: Rare Past Drug Use History: Marijuana <Joe Hodge - Last Filed: 12/21/22 10:26> General Exam Limitations: no limitations General appearance: alert, in no apparent distress Head exam: Present: atraumatic, normocephalic, normal inspection <Joe Hodge - Last Filed: 12/21/22 10:26> <Anuel Muñiz - Last Filed: 12/21/22 16:08> - General Exam Comments Initial Comments: Visual Physical Exam Vital signs reviewed General: Well-appearing, nontoxic, no acute distress. Head: Normocephalic, atraumatic Eyes: PERRLA, EOMI ENT: Airway patent Chest: Nonlabored breathing Skin: No visual rash, normal skin tone Neuro: Alert and oriented 3 Musculoskeletal: No gross abnormalities (Joe Hodge) General: Appears in mild distress secondary to emesis and abdominal pain HEAD: Normal with no signs of head trauma. EYES: PERRLA, EOMI, conjunctiva normal, no discharge. ENT: Hearing grossly intact, normal oropharynx. RESPIRATORY: Clear breath sounds bilaterally. No wheezes, rales, or rhonchi. C/V: Regular rate and rhythm. S1 and S2 auscultated, peripheral pulses 2+ and intact throughout ABD: Abdomen is soft, nondistended. Tender to palpation in the epigastric region. No guarding. No rebound tenderness. No peritoneal signs. EXT: Normal range of motion, no obvious deformity SKIN: No rashes or lesions observed on exposed skin. NEURO: Alert Oriented 4. (Anuel Muñiz) Course Vital Signs 12/21/22 12/21/22 12/21/22 10:33 12:04 15:15 Temperature 97.7 F Pulse Rate 64 90 Respiratory 20 18 20 Rate Blood Pressure 135/82 135/75 129/81 O2 Sat by Pulse 99 Oximetry 12/21/22 16:00 Temperature 97.6 F Pulse Rate 59 L Respiratory 16 Rate Blood Pressure 128/80 O2 Sat by Pulse 99 Oximetry Medical Decision Making <Joe Hodge - Last Filed: 12/21/22 10:26> - Lab Data Result diagrams: 12/21/22 11:25 12/21/22 11:25 <Anuel Muñiz - Last Filed: 12/21/22 16:08> - Medical Decision Making I performed a quick note portion of this Chart signed Joe Hodge PA-C (Joe Hodge) Was pt. sent in by a medical professional or institution (Dr. PA, [facility] [employer], urgent care, hospital, or snf...) When possible be specific @ -No Did you speak to anyone other than the patient for history (EMS, parent, family, police, friend...)? What history was obtained from this source @ -No Did you review nursing and triage notes (agree or disagree)? Why? @ -I reviewed and agree with nursing and triage notes Were old charts reviewed (outside hosp., previous admission, EMS record, old EKG, old radiological studies, urgent care reports/EKG's, snf records)? Report findings @ -No old charts were reviewed Differential Diagnosis (chest pain, altered mental status, abdominal pain women, abdominal pain men, vaginal bleeding, weakness, fever, dyspnea, syncope, headache, dizziness, GI bleed, back pain, seizure, CVA, palpatations, mental health, musculoskeletal)? @ -Differential Abdominal Pain Women: Appendicitis, Cholecystitis, diverticulosis, ischemic bowel, pancreatitis, hepatitis, UTI, gastroenteritis, AAA, incarcerated hernia, bowel obstruction, constipation, inflammatory bowel, hepatitis, peptic ulcer disease, splenic infarction, perforated viscus, vulvitis, ovarian torsion, PID, kidney stone, placenta abruption, this is not meant to be an all-inclusive list EKG interpreted by me (3pts min.). @ -None done X-rays interpreted by me (1pt min.). @ -None done CT interpreted by me (1pt min.). @ -None done U/S interpreted by me (1pt. min.). @ -: Ultrasound reveals no evidence of cholecystitis or acute intra-abdominal process. What testing was considered but not performed or refused? (CT, X-rays, U/S, labs)? Why? @ -None What meds were considered but not given or refused? Why? @ -None Did you discuss the management of the patient with other professionals (professionals i.e. , PA, [employer] [employer], lab, RT, psych nurse, social service technician, coke drawer, teacher, legal officer, rn case management)? Give summary @ -No Was smoking cessation discussed for >3mins.? @ -No Was critical care preformed (if so, how long)? @ -No Were there social determinants of health that impacted care today? How? (Homelessness, low income, unemployed, alcoholism, drug addiction, transportation, low edu. Level, literacy, decrease access to med. care, alf, rehab)? @ -No Was there de-escalation of care discussed even if they declined (Discuss DNR or withdrawal of care, Hospice)? DNR status @ -No What co-morbidities impacted this encounter? (DM, HTN, Smoking, COPD, CAD, Cancer, CVA, ARF, Chemo, Hep., AIDS, mental health diagnosis, sleep apnea, morbid obesity)? @ -None Was patient admitted / discharged? Hospital course, mention meds given and route, prescriptions, significant lab abnormalities, going to OR and other pertinent info. @ -Based the patient's presentation and physical exam, concern for intra- abdominal process at this time. Likely gastritis. She will be symptomatically treated with IV fluids, morphine, Protonix, Reglan, as well as IV fluids. Vital signs within acceptable limits. She was in agreement this plan. Labs are remarkable for a mild leukocytosis of 12.5 which is likely reactive. Patient's labs also were remarkable for slight hyperkalemia likely secondary to the emesis with history with 1 L fluid bolus. Patient's urinalysis shows possible UTI as well. I discussed results with the patient. She is still nauseous and throwing up. She'll be given Haldol and Benadryl and reevaluated. She was in agreement this plan. The urine findings, she'll be started on ciprofloxacin. She was in agree ment with this plan. I will provide the patient with a prescription for ciprofloxacin, Reglan. I instructed the patient to follow up with their PCP in the next 1-3 days. I explained that the patient should return to the emergency department if they experience any worsening symptoms. Strict return precautions were discussed with the patient. The patient expressed understanding of these instructions. I answered all questions that the patient had. The patient was discharged home in good condition with their prescriptions and follow up information. Undiagnosed new problem with uncertain prognosis? @ -No Drug Therapy requiring intensive monitoring for toxicity (Heparin, Nitro, Insulin, Cardizem)? @ -No Were any procedures done? @ -No Diagnosis/symptom? @ -Gastritis, UTI, nausea and vomiting Acute, or Chronic, or Acute on Chronic? @ -Acute Uncomplicated (without systemic symptoms) or Complicated (systemic symptoms)? @ -Complicated Side effects of treatment? @ -No Exacerbation, Progression, or Severe Exacerbation? @ -No Poses a threat to life or bodily function? How? (Chest pain, [place], [place], pneumonia, PE, COPD, DKA, ARF, appy, cholecystitis, CVA, Diverticulitis, Homicidal, Suicidal, threat to staff... and all critical care pts) @ -No (Anuel Muñiz) - Lab Data Lab Results 12/21/22 12/21/22 12/21/22 Range/Units 10:37 10:37 11:25 WBC 12.5 H (3.8-10.6) k/uL RBC 5.12 (3.80-5.40) m/uL Hgb 16.0 (11.4-16.0) gm/dL Hct 48.2 H (34.0-46.0) % MCV 94.2 (80.0-100.0) fL MCH 31.4 (25.0-35.0) pg MCHC 33.3 (31.0-37.0) g/dL RDW 13.1 (11.5-15.5) % Plt Count 170 (150-450) k/uL MPV 9.7 Neutrophils % 87 % Lymphocytes % 8 % Monocytes % 3 % Eosinophils % 1 % Basophils % 0 % Neutrophils # 10.9 H (1.3-7.7) k/uL Lymphocytes # 1.0 (1.0-4.8) k/uL Monocytes # 0.4 (0-1.0) k/uL Eosinophils # 0.1 (0-0.7) k/uL Basophils # 0.0 (0-0.2) k/uL Sodium (137-145) mmol/L Potassium (3.5-5.1) mmol/L Chloride (98-107) mmol/L Carbon Dioxide (22-30) mmol/L Anion Gap mmol/L BUN (7-17) mg/dL Creatinine (0.52-1.04) mg/dL Est GFR (CKD-EPI)AfAm (>60 ml/min/1.73 sqM) Est GFR (CKD-EPI)NonAf (>60 ml/min/1.73 sqM) Glucose (74-99) mg/dL Plasma Lactic Acid Paul (0.7-2.0) mmol/L Calcium (8.4-10.2) mg/dL Total Bilirubin (0.2-1.3) mg/dL AST (14-36) U/L ALT (4-34) U/L Alkaline Phosphatase (38-126) U/L Total Protein (6.3-8.2) g/dL Albumin (3.5-5.0) g/dL Lipase (23-300) U/L Urine Color Yellow Urine Appearance Cloudy H (Clear) Urine pH 6.0 (5.0-8.0) Ur Specific [place] 1.023 (1.001-1.035) Urine Protein 1+ H (Negative) Urine Glucose (UA) Negative (Negative) Urine Ketones 2+ H (Negative) Urine Blood Small H (Negative) Urine Nitrite Positive H (Negative) Urine Bilirubin Negative (Negative) Urine Urobilinogen <2.0 (<2.0) mg/dL Ur Leukocyte Esterase Negative (Negative) Urine RBC 10 H (0-5) /hpf Urine WBC 4 (0-5) /hpf Ur Squamous Epith Cells 4 (0-4) /hpf Urine Bacteria Occasional H (None) /hpf Urine Mucus Moderate H (None) /hpf Urine HCG, Qual Not Detected (Not Detectd) 12/21/22 12/21/22 Range/Units 11:25 11:25 WBC (3.8-10.6) k/uL RBC (3.80-5.40) m/uL Hgb (11.4-16.0) gm/dL Hct (34.0-46.0) % MCV (80.0-100.0) fL MCH (25.0-35.0) pg MCHC (31.0-37.0) g/dL RDW (11.5-15.5) % Plt Count (150-450) k/uL MPV Neutrophils % % Lymphocytes % % Monocytes % % Eosinophils % % Basophils % % Neutrophils # (1.3-7.7) k/uL Lymphocytes # (1.0-4.8) k/uL Monocytes # (0-1.0) k/uL Eosinophils # (0-0.7) k/uL Basophils # (0-0.2) k/uL Sodium 136 L (137-145) mmol/L Potassium 5.2 H (3.5-5.1) mmol/L Chloride 108 H (98-107) mmol/L Carbon Dioxide 17 L (22-30) mmol/L Anion Gap 11 mmol/L BUN 14 (7-17) mg/dL Creatinine 0.61 (0.52-1.04) mg/dL Est GFR (CKD-EPI)AfAm >90 (>60 ml/min/1.73 sqM) Est GFR (CKD-EPI)NonAf >90 (>60 ml/min/1.73 sqM) Glucose 124 H (74-99) mg/dL Plasma Lactic Acid Paul 1.0 (0.7-2.0) mmol/L Calcium 9.9 (8.4-10.2) mg/dL Total Bilirubin 1.3 (0.2-1.3) mg/dL AST 36 (14-36) U/L ALT 16 (4-34) U/L Alkaline Phosphatase 89 (38-126) U/L Total Protein 8.5 H (6.3-8.2) g/dL Albumin 5.2 H (3.5-5.0) g/dL Lipase 159 (23-300) U/L Urine Color Urine Appearance (Clear) Urine pH (5.0-8.0) Ur Specific [place] (1.001-1.035) Urine Protein (Negative) Urine Glucose (UA) (Negative) Urine Ketones (Negative) Urine Blood (Negative) Urine Nitrite (Negative) Urine Bilirubin (Negative) Urine Urobilinogen (<2.0) mg/dL Ur Leukocyte Esterase (Negative) Urine RBC (0-5) /hpf Urine WBC (0-5) /hpf Ur Squamous Epith Cells (0-4) /hpf Urine Bacteria (None) /hpf Urine Mucus (None) /hpf Urine HCG, Qual (Not Detectd) Disposition <Joe Hodge - Last Filed: 12/21/22 10:26> Is patient prescribed a controlled substance at d/c from ED?: No Time of Disposition: 13:45 <Anuel Muñiz - Last Filed: 12/21/22 16:08> Clinical Impression: Gastritis, UTI (urinary tract infection), Nausea and vomiting Disposition: HOME SELF-CARE Condition: Good Instructions (If sedation given, give patient instructions): Acute Nausea and Vomiting (ED) Prescriptions: Ciprofloxacin HCl [Cipro] 500 mg PO BID 5 Days #10 tab Metoclopramide [Reglan] 5 mg PO BID 5 Days #10 tab Referrals: Jason Gayle MD [Primary Care Provider] - 1-2 days
[2022-12-21 11:24] LABS: Appearance,Urine Cloudy (Clear); Bacteria,Urine Occasional /hpf; Bilirubin,Urine Negative (Negative); Blood,Urine Small (Negative); Color,Urine Yellow; Glucose,Urine (UA) Negative (Negative); Ketones,Urine 2+ (Negative); Leukocyte Esterase,Urine Negative (Negative); Mucus,Urine Moderate /hpf; Nitrite,Urine Positive (Negative); Protein,Urine 1+ (Negative); RBC,Urine 10 /hpf (0-5); Specific Gravity,Urine 1.023 (1.001-1.035); Squamous Epithelial Cell,Urine 4 /hpf (0-4); Urobilinogen,Urine <2.0 mg/dL (<2.0); WBC,Urine 4 /hpf (0-5)
[2022-12-21 11:49] LABS: Basophils % (A) 0 %; Eosinophils # (A) 0.1 k/uL (0-0.7); Eosinophils % (A) 1 %; HCT 48.2 % (34.0-46.0); Lymphocytes % (A) 8 %; MCH 31.4 pg (25.0-35.0); MCHC 33.3 g/dL (31.0-37.0); MCV 94.2 fL (80.0-100.0); Mean Platelet Volume 9.7; Monocytes # (A) 0.4 k/uL (0-1.0); Monocytes % (A) 3 %; Neutrophils # (A) 10.9 k/uL (1.3-7.7); Neutrophils % (A) 87 %; Platelet Count 170 k/uL (150-450); RBC 5.12 m/uL (3.80-5.40); RDW 13.1 % (11.5-15.5); WBC 12.5 k/uL (3.8-10.6)
[2022-12-21] MEDS ORDERED: METOCLOPRAMIDE 5 MG/ML 2 ML VIAL IVP STA ×2 (11:52→14:01)
[2022-12-21] MEDS ORDERED: SODIUM CHLORIDE 0.9% 1,000 ML IV STA (11:52)
[2022-12-21] MEDS ORDERED: MORPHINE SULFATE 4 MG/ML SYRINGE IVP STA (11:52)
[2022-12-21] MEDS ORDERED: PANTOPRAZOLE 40 MG/10 ML VIAL IVP STA (11:53)
[2022-12-21 12:33] LABS: ALT 16 U/L (4-34); AST 36 U/L (14-36); African American GFR (CKD) >90 (>60 ml/min/1.73 sqM); Albumin 5.2 g/dL (3.5-5.0); Alkaline Phosphatase 89 U/L (38-126); Anion Gap 11 mmol/L; Blood Urea Nitrogen 14 mg/dL (7-17); Calcium 9.9 mg/dL (8.4-10.2); Carbon Dioxide 17 mmol/L (22-30); Chloride 108 mmol/L (98-107); Glucose 124 mg/dL (74-99); Lipase 159 U/L (23-300); Non-African American GFR(CKD) >90 (>60 ml/min/1.73 sqM); Potassium 5.2 mmol/L (3.5-5.1); Sodium 136 mmol/L (137-145); Total Bilirubin 1.3 mg/dL (0.2-1.3); Total Protein 8.5 g/dL (6.3-8.2)
[2022-12-21] MEDS ORDERED: HYDROmorphone 0.5 MG/0.5 ML SYRINGE IVP STA (12:59)
--- NOTE | 2022-12-21 13:06 | US ---
EXAMINATION TYPE: US gallbladder DATE OF EXAM: 12/21/2022 COMPARISON: 10/06/2020 CLINICAL INDICATION: Female, 27 years old with history of abd pain, n/v; severe epigastric pain nause a and vomiting TECHNIQUE: Multiple sonographic images of the right upper quadrant are obtained. FINDINGS: EXAM MEASUREMENTS: Liver Length: 16.9 Gallbladder Wall: 0.2m CBD: 0.3m Right Kidney: 10.2x5.0x5.4 RADIO PRODUCER NOTES: Pancreas: wnl, duct dilated to 0.2 cm Liver: wnl, enlarged Gallbladder: wnl, images taken in one position due to patient inability to move Evidence for sonographic Devries's sign: No CBD: wnl Right Kidney: wnl exam slightly limited by patient inability to tolerate exam. Pt. was unable to change positions and w as scanned upright. patient vomiting and in severe pain during exam. IMPRESSION: No evidence for acute cholecystitis. No evidence for acute process.
[2022-12-21] MEDS ORDERED: CIPROFLOXACIN HCL 500 MG TAB PO STA (14:03)
[2022-12-21] MEDS ORDERED: HALOPERIDOL LACTATE 5 MG/ML 1 ML VIAL IVP STA (14:58)
[2022-12-21] MEDS ORDERED: diphenhydrAMINE 50 MG/ML 1 ML VIAL IVP STA (14:58)
[2022-12-22 15:43] VITALS: BP 128/80; RESP 16
[2022-12-22 15:44] VITALS: PULSE 59; TEMP 97.6
== END 2022-12-21 16:03 | disposition home or self-care (01) ==
LOC: EC 10:21
DX: K29.70 Gastritis, unspecified, without bleeding (principal); N39.0 Urinary tract infection, site not specified; B96.89 Other specified bacterial agents as the cause of diseases classified elsewhere; K21.9 Gastro-esophageal reflux disease without esophagitis; F12.90 Cannabis use, unspecified, uncomplicated; F17.200 Nicotine dependence, unspecified, uncomplicated; Z79.899 Other long term (current) drug therapy; Z86.59 Personal history of other mental and behavioral disorders
CPT/HCPCS: 99284; 36415; 80053; 83605; 83690; 85025; 81001; 81025; 87086; 76705; 96374; 96375 ×5; 96376; 96361 ×3; J2270; J1200; J1630; J2765; C9113; J1170

== ENCOUNTER → 2023-06-26 | Outpatient (CLI) | payer BC ==
--- NOTE | 2023-06-26 09:13 | US ---
EXAMINATION TYPE: US pelvic complete DATE OF EXAM: 06/26/2023 COMPARISON: NONE CLINICAL INDICATION: Female, 28 years old with history of R19.4 BOWEL FUNCTION; h/o constipation and currently on laxatives, no pelvic complaints, G0 TECHNIQUE: TA. Transabdominal sonographic images of the pelvis were acquired. Date of LMP: 2 weeks ago EXAM MEASUREMENTS: Uterus: 6.7 x 3.9 x 3.1 cm Endometrial Stripe: 0.5 cm Right Ovary: 2.9 x 2.4 x 2.3 cm Left Ovary: 2.5 x 2.6 x 2.8 cm 1. Uterus: Anteverted wnl 2. Endometrium: wnl 3. Right Ovary: 1.4 x x 1.4 x 1.5cm follicle seen 4. Left Ovary: wnl 5. Bilateral Adnexa: wnl 6. Posterior cul-de-sac: wnl IMPRESSION: 1. Endometrium within normal limits for thickness. 2. No evidence for acute process.
== END | disposition home or self-care (01) ==
LOC: RADUSWWP 08:11
PROVIDERS: ATTEND Family Medicine
DX: R19.4 Change in bowel habit (principal)
CPT/HCPCS: 76856

== ENCOUNTER → 2023-10-03 | Outpatient (CLI) | payer BC ==
[2023-10-03 15:25] LABS: ALT 12 U/L (4-34); AST 18 U/L (14-36); African American GFR (CKD) >90 (>60 ml/min/1.73 sqM); Albumin 4.5 g/dL (3.5-5.0); Albumin/Globulin Ratio 2.1; Alkaline Phosphatase 51 U/L (38-126); Anion Gap 6 mmol/L; Blood Urea Nitrogen 10 mg/dL (7-17); Calcium 9.4 mg/dL (8.4-10.2); Carbon Dioxide 23 mmol/L (22-30); Chloride 106 mmol/L (98-107); Globulin 2.1 g/dL; Glucose 90 mg/dL (74-99); Non-African American GFR(CKD) >90 (>60 ml/min/1.73 sqM); Potassium 4.3 mmol/L (3.5-5.1); Sodium 135 mmol/L (137-145); Total Bilirubin 0.4 mg/dL (0.2-1.3); Total Protein 6.6 g/dL (6.3-8.2)
[2023-10-03 17:03] LABS: Basophils % (A) 1 %; Eosinophils % (A) 1 %; HCT 40.8 % (34.0-46.0); Lymphocytes % (A) 29 %; MCH 30.8 pg (25.0-35.0); MCHC 31.9 g/dL (31.0-37.0); MCV 96.4 fL (80.0-100.0); Mean Platelet Volume 8.3; Monocytes # (A) 0.2 k/uL (0-1.0); Monocytes % (A) 4 %; Neutrophils # (A) 4.3 k/uL (1.3-7.7); Neutrophils % (A) 65 %; Platelet Count 214 k/uL (150-450); RBC 4.23 m/uL (3.80-5.40); RDW 12.7 % (11.5-15.5); WBC 6.7 k/uL (3.8-10.6)
== END | disposition home or self-care (01) ==
LOC: LABWHC1 14:43
PROVIDERS: ATTEND Physician Assistant Medical
DX: Z32.01 Encounter for pregnancy test, result positive (principal)
CPT/HCPCS: 36415; 80053; 84443; 84702; 85025; 86850; 86900; 86901

== ENCOUNTER → 2023-10-13 | Outpatient (CLI) | payer BC ==
--- NOTE | 2023-10-13 16:11 | US ---
EXAMINATION TYPE: Transabdominal DATE OF EXAM: 10/13/2023 2:46 PM COMPARISON: Pelvic ultrasound 06/26/2023 CLINICAL INDICATION: Female, 28 years old with history of O99.891 OTH DISEASES AND CONDITIONS COMPLIC ATING P; EXAM PERFORMED: Transvaginal (TV) and Transabdominal (TA) EXAM MEASUREMENTS: GESTATIONAL AGE / DATING Physician Established: ( weeks/ days) EDC: Dates by LMP: 08/09/2023 (9 weeks/2 days) EDC: 05/15/2024 Dates by First Scan: ( weeks/ days) EDC: Dates by Current Scan for: (6 weeks/6 days) EDC: 06/02/2024 MATERNAL ANATOMY Uterus: 8.9 x 3.8 x 5.1 cm Right Ovary: 3.6 x 3.6 x 2.5 Left Ovary: 2.1 x 2.5 x 1.4 Post CDS / Adnexa: WNL Presence of free fluid: No Presence of corpus luteal cyst: No Presence of subchorionic bleed: ? Multiple GESTATION / SURVEY CRL: 5.86 (6 weeks/3 days) MSD: 1.83 (6 weeks/6 days) Yolk Sac (normal less than 6mm): 0.19 Heart Rate: Flicker seen, unable to obtain heart rate due to early gestation bpm Rhythm: Normal IUP: Viable IUP Nuchal Translucency 10-14wks (normal less than 3mm): NA Age Appropriate Anatomy Cord Insertion: NA Limbs: NA Calvarium: NA Date of LMP: Early august Beta HcG (if available): NA Intrauterine identified with yolk sac. Flicker seen for heart rate however unable to obtain due to early gestation. Tiny hypoechoic regions adjacent to the gestational sac likely representing tiny subchronic hemorrhages. IMPRESSION: 1. Intrauterine with ultrasound age of 6 weeks 6 days and expected delivery date of [birth year] 25. heart rate is not detected at this time, likely due to early . Close clinical foll ow-up with serial beta hCG and short-term follow-up ultrasound is recommended. 2. Tiny subchorionic hemorrhages suggested. Close clinical surveillance is recommended.
== END | disposition home or self-care (01) ==
LOC: RADUSWWP 14:21
PROVIDERS: ATTEND Family Medicine
DX: O99.891 Other specified diseases and conditions complicating pregnancy (principal); Z3A.01 Less than 8 weeks gestation of pregnancy
CPT/HCPCS: 76801

== ENCOUNTER → 2023-11-03 | Outpatient (CLI) | payer BC ==
--- NOTE | 2023-11-03 13:51 | US ---
EXAMINATION TYPE: Transabdominal DATE OF EXAM: 11/03/2023 1:28 PM COMPARISON: NONE CLINICAL INDICATION: Female, 28 years old with history of O41.1299 CHORIOAMNIONITIS, UNSPECIFIED TRIM MORGAN,; Pelvic pain, nausea, constipation, follow up EXAM PERFORMED: Transabdominal (TA) EXAM MEASUREMENTS: GESTATIONAL AGE / DATING Physician Established: (9 weeks/5 days) EDC: 06/02/24 Dates by LMP: LMP unknown Dates by First Scan: (9 weeks/5 days) EDC: 06/02/24 Dates by Current Scan for: (9 weeks/4 days) EDC: 06/03/24 MATERNAL ANATOMY Uterus: 10.6 x 6.1 x 6.6cm Right Ovary: 3.4 x 2.5 x 2.4cm Left Ovary: 2.3 x 2.2 x 1.3cm Post CDS / Adnexa: wnl Presence of free fluid: no Presence of corpus luteal cyst: yes, hypoechoic area right ovary = 2.5 x 2.3 x 2.5cm Presence of subchorionic bleed: no GESTATION / SURVEY CRL: 2.7cm (9 weeks/4 days) Yolk Sac (normal less than 6mm): 0.3cm Heart Rate: 163 bpm Rhythm: Normal IUP: Viable IUP Date of LMP: unknown Beta HcG (if available): Not available at this time IMPRESSION: 1. Single viable intrauterine noted.
== END | disposition home or self-care (01) ==
LOC: RADUSWWP 13:07
PROVIDERS: ATTEND Family Medicine
DX: O41.12 Chorioamnionitis (principal); O26.891 Other specified pregnancy related conditions, first trimester; Z3A.09 9 weeks gestation of pregnancy
CPT/HCPCS: 76801

== ENCOUNTER 2023-12-05 05:53 | Emergency (ER) | payer BC ==
[2023-12-05 05:57] VITALS: TEMP 97.3
--- NOTE | 2023-12-05 06:29 | ED ---
Nausea/Vomiting/Diarrhea HPI - General Chief complaint: Nausea/Vomiting/Diarrhea Stated complaint: 14 wks preg, abd pain Time Seen by Provider: 12/05/23 06:02 Source: patient, RN notes reviewed Mode of arrival: wheelchair Limitations: no limitations - History of Present Illness Initial comments: 28-year-old female presents emergency department with chief complaint of nausea vomiting. Started around 8 PM last night. Patient states that she has bad ref lux she also is currently . Patient denies any vaginal bleeding or problems with her . Patient states that she just cannot stop vomiting she feels dehydrated. Patient denies any fevers or chills no chest pain no shortness of breath no dysuria patient offers no other complaints. - Related Data Home Medications Medication Instructions Recorded Confirmed Famotidine [Pepcid] 40 mg PO HS 10/06/20 12/21/22 Ondansetron Odt [Zofran Odt] 4 mg PO Q8H PRN 10/06/20 12/21/22 Mag/Aluminum/Sod Bicarb/Alginc 1 tab PO ACHS PRN 12/21/22 12/21/22 [Gaviscon 80-14.2 mg Tab Chew] Pantoprazole [Protonix] 40 mg PO DAILY 12/21/22 12/21/22 Previous Rx's Medication Instructions Recorded Ciprofloxacin HCl [Cipro] 500 mg PO BID 5 Days #10 tab 12/21/22 Metoclopramide [Reglan] 5 mg PO BID 5 Days #10 tab 12/21/22 Metoclopramide [Reglan] 10 mg PO TID PRN #15 tab 12/05/23 Allergies Allergy/AdvReac Type Severity Reaction Status Date / Time No Known Allergies Allergy Verified 12/05/23 05:57 Review of Systems ROS Statement: Those systems with pertinent positive or pertinent negative responses have been documented in the HPI. ROS Other: All systems not noted in ROS Statement are negative. Past Medical History Past Medical History: GERD/Reflux History of Any Multi-Drug Resistant Organisms: None Reported Past Surgical History: No Surgical Hx Reported Past Psychological History: Anxiety Smoking Status: Former smoker Past Alcohol Use History: Rare Past Drug Use History: Marijuana General Exam Limitations: no limitations General appearance: alert, in no apparent distress Head exam: Present: atraumatic, normocephalic, normal inspection Eye exam: Present: normal appearance, PERRL, EOMI. Absent: scleral icterus, conjunctival injection, periorbital swelling ENT exam: Present: mucous membranes moist Neck exam: Present: normal inspection. Absent: tenderness, meningismus, lymphadenopathy Respiratory exam: Present: normal lung sounds bilaterally. Absent: respiratory distress, wheezes, rales, rhonchi, stridor Cardiovascular Exam: Present: regular rate, normal rhythm, normal heart sounds. Absent: systolic murmur, diastolic murmur, rubs, gallop, clicks GI/Abdominal exam: Present: soft, tenderness, normal bowel sounds. Absent: distended, guarding, rebound, rigid Course Vital Signs 12/05/23 12/05/23 12/05/23 05:54 06:08 09:19 Temperature 97.3 F L Pulse Rate 72 72 74 Respiratory 20 18 16 Rate Blood Pressure 149/78 136/82 120/82 O2 Sat by Pulse 100 100 99 Oximetry Medical Decision Making - Medical Decision Making Was pt. sent in by a medical professional or institution (, PA, CUTTING MACHINE TENDER HELPER, urgent care, hospital, or [facility]...) When possible be specific @ -No Did you speak to anyone other than the patient for history (EMS, parent, family, police, friend...)? What history was obtained from this source @ -No Did you review nursing and triage notes (agree or disagree)? Why? @ -I reviewed and agree with nursing and triage notes Were old charts reviewed (outside hosp., previous admission, EMS record, old EKG, old radiological studies, urgent care reports/EKG's, [facility] records)? Report findings @ -No old charts were reviewed Differential Diagnosis (chest pain, altered mental status, abdominal pain women, abdominal pain men, vaginal bleeding, weakness, fever, dyspnea, syncope, headache, dizziness, GI bleed, back pain, seizure, CVA, palpatations, mental health, musculoskeletal)? @ -Differential Abdominal Pain Women: Appendicitis, Cholecystitis, diverticulosis, ischemic bowel, pancreatitis, hepatitis, UTI, gastroenteritis, AAA, incarcerated hernia, bowel obstruction, constipation, inflammatory bowel, hepatitis, peptic ulcer disease, splenic infarction, perforated viscus, vulvitis, ovarian torsion, PID, kidney stone, p lacenta abruption, this is not meant to be an all-inclusive list EKG interpreted by me (3pts min.). @ -None X-rays interpreted by me (1pt min.). @ -None done CT interpreted by me (1pt min.). @ -None done U/S interpreted by me (1pt. min.). @ -None done What testing was considered but not performed or refused? (CT, X-rays, U/S, labs)? Why? @ -None What meds were considered but not given or refused? Why? @ -None Did you discuss the management of the patient with other professionals (professionals i.e. , PA, CUTTING MACHINE TENDER HELPER, lab, RT, psych nurse, social science teacher, chick room supervisor, teacher, liaison officer, catalytic case operator)? Give summary @ -No Was smoking cessation discussed for >3mins.? @ -No Was critical care preformed (if so, how long)? @ -No Were there social determinants of health that impacted care today? How? (H omelessness, low income, unemployed, alcoholism, drug addiction, transportation, low edu. Level, literacy, decrease access to med. care, care home, rehab)? @ -No Was there de-escalation of care discussed even if they declined (Discuss DNR or withdrawal of care, Hospice)? DNR status @ -No What co-morbidities impacted this encounter? (DM, HTN, Smoking, COPD, CAD, Cancer, CVA, ARF, Chemo, Hep., AIDS, mental health diagnosis, sleep apnea, morbid obesity)? @ -GERD Was patient admitted / discharged? Hospital course, mention meds given and route, prescriptions, significant lab abnormalities, going to OR and other pertinent info. @ -Discharge patient presented for increasing nausea vomiting which she has been having throughout her . Patient has a long history of GERD and in particular medication secondary to nausea and vomiting. Patient has epigastric pain which is improved. Laboratory studies do not show any significant abnormalities. Patient was given antiemetics. Undiagnosed new problem with uncertain prognosis? @ -No Drug Therapy requiring intensive monitoring for toxicity (Heparin, Nitro, Insulin, Cardizem)? @ -No Were any procedures done? @ -No Diagnosis/symptom? @ -Nausea vomiting, GERD Acute, or Chronic, or Acute on Chronic? @ -Acute Uncomplicated (without systemic symptoms) or Complicated (systemic symptoms)? @ -Uncomplicated Side effects of treatment? @ -No Exacerbation, Progression, or Severe Exacerbation? @ -No Poses a threat to life or bodily function? How? (Chest pain, [place], [place], pneumonia, PE, COPD, DKA, ARF, appy, cholecystitis, CVA, Diverticulitis, Homicidal, Suicidal, threat to staff... and all critical care pts) @ -No - Lab Data Result diagrams: 12/05/23 06:20 12/05/23 06:20 Lab Results 12/05/23 12/05/23 12/05/23 Range/Units 06:20 06:20 06:20 WBC 10.1 (3.8-10.6) k/uL RBC 4.16 (3.80-5.40) m/uL Hgb 13.0 (11.4-16.0) gm/dL Hct 39.0 (34.0-46.0) % MCV 93.9 (80.0-100.0) fL MCH 31.2 (25.0-35.0) pg MCHC 33.3 (31.0-37.0) g/dL RDW 12.7 (11.5-15.5) % Plt Count 208 (150-450) k/uL MPV 7.8 Neutrophils % 87 % Lymphocytes % 10 % Monocytes % 2 % Eosinophils % 0 % Basophils % 0 % Neutrophils # 8.8 H (1.3-7.7) k/uL Lymphocytes # 1.0 (1.0-4.8) k/uL Monocytes # 0.2 (0-1.0) k/uL Eosinophils # 0.0 (0-0.7) k/uL Basophils # 0.0 (0-0.2) k/uL Sodium 136 L (137-145) mmol/L Potassium 3.9 (3.5-5.1) mmol/L Chloride 104 (98-107) mmol/L Carbon Dioxide 20 L (22-30) mmol/L Anion Gap 12 mmol/L BUN 11 (7-17) mg/dL Creatinine 0.44 L (0.52-1.04) mg/dL Est GFR (CKD-EPI)AfAm >90 (>60 ml/min/1.73 sqM) Est GFR (CKD-EPI)NonAf >90 (>60 ml/min/1.73 sqM) Glucose 152 H (74-99) mg/dL Calcium 9.7 (8.4-10.2) mg/dL Total Bilirubin 0.5 (0.2-1.3) mg/dL AST 19 (14-36) U/L ALT 12 (4-34) U/L Alkaline Phosphatase 52 (38-126) U/L Total Protein 7.2 (6.3-8.2) g/dL Albumin 4.9 (3.5-5.0) g/dL Lipase 114 (23-300) U/L Urine Color Light Yellow Urine Appearance Turbid H (Clear) Urine pH 8.0 (5.0-8.0) Ur Specific [place] 1.013 (1.001-1.035) Urine Protein Trace H (Negative) Urine Glucose (UA) Negative (Negative) Urine Ketones Trace H (Negative) Urine Blood Small H (Negative) Urine Nitrite Negative (Negative) Urine Bilirubin Negative (Negative) Urine Urobilinogen <2.0 (<2.0) mg/dL Ur Leukocyte Esterase Negative (Negative) Urine RBC 6 H (0-5) /hpf Urine WBC 3 (0-5) /hpf Ur Squamous Epith Cells 2 (0-4) /hpf Amorphous Sediment Many H (None) /hpf Urine Bacteria Moderate H (None) /hpf Urine Mucus Occasional H (None) /hpf Disposition Clinical Impression: , Nausea and vomiting, GERD (gastroesophageal reflux disease) Disposition: HOME SELF-CARE Condition: Stable Instructions (If sedation given, give patient instructions): Acute Nausea and Vomiting (ED) Additional Instructions: Please return to the Emergency Department if symptoms worsen or any other concerns. Prescriptions: Metoclopramide [Reglan] 10 mg PO TID PRN #15 tab PRN Reason: Nausea Is patient prescribed a controlled substance at d/c from ED?: No Referrals: Sadia Smith PAC [REFERRING] - 1-2 days Time of Disposition: 08:46
[2023-12-05] MEDS: METOCLOPRAMIDE 5 MG/ML 2 ML VIAL IVP STA (06:42)
[2023-12-05] MEDS: diphenhydrAMINE 50 MG/ML 1 ML VIAL IVP STA (06:43)
[2023-12-05] MEDS: FAMOTIDINE 20 MG/2 ML VIAL IV STA (06:43)
[2023-12-05] MEDS: SODIUM CHLORIDE 0.9% 2,000 ML IV STA (06:44)
[2023-12-05 07:22] LABS: Basophils % (A) 0 %; Eosinophils % (A) 0 %; Lymphocytes % (A) 10 %; MCH 31.2 pg (25.0-35.0); MCHC 33.3 g/dL (31.0-37.0); MCV 93.9 fL (80.0-100.0); Mean Platelet Volume 7.8; Monocytes # (A) 0.2 k/uL (0-1.0); Monocytes % (A) 2 %; Neutrophils # (A) 8.8 k/uL (1.3-7.7); Neutrophils % (A) 87 %; Platelet Count 208 k/uL (150-450); RBC 4.16 m/uL (3.80-5.40); RDW 12.7 % (11.5-15.5); WBC 10.1 k/uL (3.8-10.6)
[2023-12-05] MEDS: MAG HYDROX/AL HYDROX/SIMETH 30 ML CUP PO STA (07:40)
[2023-12-05 07:46] LABS: ALT 12 U/L (4-34); AST 19 U/L (14-36); African American GFR (CKD) >90 (>60 ml/min/1.73 sqM); Albumin 4.9 g/dL (3.5-5.0); Alkaline Phosphatase 52 U/L (38-126); Anion Gap 12 mmol/L; Blood Urea Nitrogen 11 mg/dL (7-17); Calcium 9.7 mg/dL (8.4-10.2); Carbon Dioxide 20 mmol/L (22-30); Chloride 104 mmol/L (98-107); Glucose 152 mg/dL (74-99); Lipase 114 U/L (23-300); Non-African American GFR(CKD) >90 (>60 ml/min/1.73 sqM); Potassium 3.9 mmol/L (3.5-5.1); Sodium 136 mmol/L (137-145); Total Bilirubin 0.5 mg/dL (0.2-1.3); Total Protein 7.2 g/dL (6.3-8.2)
[2023-12-05 08:04] LABS: Amorphous Sediment,Urine Many /hpf; Appearance,Urine Turbid (Clear); Bacteria,Urine Moderate /hpf; Bilirubin,Urine Negative (Negative); Blood,Urine Small (Negative); Color,Urine Light Yellow; Glucose,Urine (UA) Negative (Negative); Ketones,Urine Trace (Negative); Leukocyte Esterase,Urine Negative (Negative); Mucus,Urine Occasional /hpf; Nitrite,Urine Negative (Negative); Protein,Urine Trace (Negative); RBC,Urine 6 /hpf (0-5); Specific Gravity,Urine 1.013 (1.001-1.035); Squamous Epithelial Cell,Urine 2 /hpf (0-4); Urobilinogen,Urine <2.0 mg/dL (<2.0); WBC,Urine 3 /hpf (0-5)
[2023-12-05] MEDS: LIDOCAINE VISCOUS 2% 15 ML CUP PO ONE (08:38)
[2023-12-05] MEDS: ONDANSETRON 4 MG/2 ML VIAL IVP STA (08:39)
[2023-12-05 09:21] VITALS: BP 120/82; PULSE 74; RESP 16
== END 2023-12-05 09:21 | disposition home or self-care (01) ==
LOC: EC 05:53
CPT/HCPCS: 36415; 80053; 81001; 83690; 85025; 96361; 96374; 96375; 99284

== ENCOUNTER 2023-12-06 11:18 | Observation (INO) | payer BC ==
[2023-12-06] MEDS: LACTATED RINGERS 1,000 ML IV ONE (11:45)
[2023-12-06] MEDS: ONDANSETRON 4 MG/2 ML VIAL IVP STA (12:06)
[2023-12-06] MEDS: LACTATED RINGERS 1,000 ML IV SCH (12:09)
[2023-12-06] MEDS: ACETAMINOPHEN IV (For NPO) 1,000 MG in EMPTY BAG 1 BAG IVPB STA (12:14)
[2023-12-06] MEDS: PANTOPRAZOLE 40 MG/10 ML VIAL IVP ONE (12:36)
[2023-12-06 12:46] LABS: Appearance,Urine Cloudy (Clear); Bacteria,Urine Few /hpf; Bilirubin,Urine Negative (Negative); Blood,Urine Moderate (Negative); Color,Urine Yellow; Glucose,Urine (UA) 2+ (Negative); Ketones,Urine 1+ (Negative); Leukocyte Esterase,Urine Trace (Negative); Mucus,Urine Many /hpf; Nitrite,Urine Negative (Negative); Protein,Urine 2+ (Negative); RBC,Urine 16 /hpf (0-5); Specific Gravity,Urine 1.027 (1.001-1.035); Squamous Epithelial Cell,Urine 7 /hpf (0-4); Urobilinogen,Urine <2.0 mg/dL (<2.0); WBC,Urine 13 /hpf (0-5)
[2023-12-06] MEDS ORDERED: NALBUPHINE 10 MG/ML (10 ML MDV) IV PRN (12:54)
[2023-12-06] MEDS: HYDROmorphone 0.5 MG/0.5 ML SYRINGE IVP PRN (13:30)
--- NOTE | 2023-12-06 14:14 | US ---
EXAMINATION TYPE: US kidneys/renal and bladder DATE OF EXAM: 12/06/2023 COMPARISON: NONE CLINICAL INDICATION: Female, 28 years old with history of back pain right side, hematuria; right flan k pain, hematuria EXAM MEASUREMENTS: Right Kidney: 11.0 x 4.6 x 4.5 cm Left Kidney: 11.3 x 5.7 x 4.6 cm Right Kidney: no evidence of hydronephrosis Left Kidney: no evidence of hydronephrosis Bladder: appears wnl Bilateral Jets seen: no Renal cortical thickness and echogenicity maintained. IMPRESSION: No hydronephrosis or nephrolithiasis. Borderline posterior bladder wall thickening correlate for cyst itis.
[2023-12-06] MEDS ORDERED: NALOXONE 0.4 MG/ML 1 ML VIAL IV PRN (14:41)
[2023-12-06 16:34] LABS: Basophils % (A) 0 %; Eosinophils % (A) 0 %; HCT 34.5 % (34.0-46.0); HGB 11.7 gm/dL (11.4-16.0); Lymphocytes # (A) 1.5 k/uL (1.0-4.8); Lymphocytes % (A) 11 %; MCH 32.1 pg (25.0-35.0); MCV 94.4 fL (80.0-100.0); Mean Platelet Volume 8.2; Monocytes # (A) 0.5 k/uL (0-1.0); Monocytes % (A) 4 %; Neutrophils # (A) 12.1 k/uL (1.3-7.7); Neutrophils % (A) 84 %; Platelet Count 175 k/uL (150-450); RBC 3.65 m/uL (3.80-5.40); RDW 12.9 % (11.5-15.5); WBC 14.3 k/uL (3.8-10.6)
[2023-12-06] MEDS: HYDROmorphone PCA 10 MG/50 ML BAG IV PRN (16:40)
[2023-12-06 16:46] LABS: ALT 17 U/L (4-34); AST 24 U/L (14-36); African American GFR (CKD) >90 (>60 ml/min/1.73 sqM); Alkaline Phosphatase 40 U/L (38-126); Anion Gap 6 mmol/L; Blood Urea Nitrogen 16 mg/dL (7-17); Calcium 9.3 mg/dL (8.4-10.2); Carbon Dioxide 25 mmol/L (22-30); Chloride 105 mmol/L (98-107); Glucose 112 mg/dL (74-99); Non-African American GFR(CKD) >90 (>60 ml/min/1.73 sqM); Potassium 3.5 mmol/L (3.5-5.1); Sodium 136 mmol/L (137-145); Total Bilirubin 0.6 mg/dL (0.2-1.3); Total Protein 6.1 g/dL (6.3-8.2)
[2023-12-06] MEDS: METOCLOPRAMIDE 5 MG/ML 2 ML VIAL IVP PRN (16:53)
[2023-12-06] MEDS: CALCIUM CARBONATE 500 MG CHEWABLE PO PRN (21:50)
[2023-12-07 08:45] VITALS: BP 131/79; PULSE 76; RESP 16; TEMP 98.5
[2023-12-07] MEDS: PANTOPRAZOLE 40 MG/10 ML VIAL IVP SCH (09:11)
--- NOTE | 2023-12-07 10:00 | P.HPOB ---
History of Present Illness H&P Date: 12/07/23 Chief Complaint: Flank pain, nausea and vomiting, dehydration, 14 weeks The patient was brought to triage for aggressive rehydration and management of flank pain at 14+ weeks of after being seen in the office yesterday. In triage she was able to provide a urinary sample which was sent to the lab and found to be equivocal for infection and possibly also nephrolithiasis. As her pain was relatively intractable and her nausea continued, the decision was made to admit her for 23-hour observation for IV hydration and pain control. Over the course of the next 12 hours, her pain has significantly improved though she has not seen a stone pass despite straining her urine. She has been afebrile throughout her stay but feels significantly improved this morning. She was provided with a PRODUCTION ASSEMBLY SUPERVISOR for pain control which has not been used in approximately 4 to 6 hours. She is tolerating liquids by mouth though she has not eaten much. The decision to proceed with 1 prophylactic dose of antibiotics to cover for both urinary tract infection/pyelonephritis was made this morning and Rocephin 1 g was to be given intravenously prior to discharge. Obstetrical history: 1 para 0 with current statistics listed above. Gynecologic history: Unremarkable. Review of Systems Review of systems is confined history of present illness. Past Medical History Past Medical History: GERD/Reflux History of Any Multi-Drug Resistant Organisms: None Reported Past Surgical History: No Surgical Hx Reported Past Anesthesia/Blood Transfusion Reactions: No Reported Reaction Past Psychological History: Anxiety Smoking Status: Never smoker Past Alcohol Use History: Rare Past Drug Use History: Marijuana - Past Family History Father Family Medical History: No Reported History Medications and Allergies Home Medications Medication Instructions Recorded Confirmed Type Famotidine [Pepcid] 40 mg PO HS 10/06/20 12/06/23 History Docusate [Colace] 100 mg PO DAILY PRN 12/06/23 12/06/23 History Vit No.179/Iron/Folic 1 tab PO DAILY 12/06/23 12/06/23 History [ Tablet] Allergies Allergy/AdvReac Type Severity Reaction Status Date / Time No Known Allergies Allergy Verified 12/06/23 11:41 Exam Vital Signs Temp Pulse Resp BP Pulse Ox 12/07/23 08:00 98.5 F 76 16 131/79 98 12/06/23 20:00 98.8 F 67 18 110/62 97 08/28/24 16:00 97.7 F 67 18 102/57 96 12/06/23 15:00 97.8 F 63 16 137/65 Intake and Output 12/06/23 12/07/23 12/07/23 22:59 06:59 14:59 Other: Weight 70.307 kg In general, this is a well-developed, well-nourished white female who appears somewhat uncomfortable. Her heart has a regular rhythm and rate without murmur. Her lungs are clear to auscultation bilaterally in all [place]. Her abdomen is nondistended, has normal active bowel sounds, soft, and not specifically tender and without any palpable masses aside from the uterine fundus consistent with her gestational age. Her extremities are without any cyanosis, clubbing, or edema and are nontender to palpation bilaterally. Pelvic examination is deferred. Results Result Diagrams: 12/06/23 15:40 12/06/23 15:40 Abnormal Lab Results - Last 24 Hours (Table) 12/06/23 12/06/23 12/06/23 Range/Units 11:25 15:40 15:40 WBC 14.3 H (3.8-10.6) k/uL RBC 3.65 L (3.80-5.40) m/uL Neutrophils # 12.1 H (1.3-7.7) k/uL Sodium 136 L (137-145) mmol/L Creatinine 0.45 L (0.52-1.04) mg/dL Glucose 112 H (74-99) mg/dL Total Protein 6.1 L (6.3-8.2) g/dL Urine Appearance Cloudy H (Clear) Urine Protein 2+ H (Negative) Urine Glucose (UA) 2+ H (Negative) Urine Ketones 1+ H (Negative) Urine Blood Moderate H (Negative) Ur Leukocyte Esterase Trace H (Negative) Urine RBC 16 H (0-5) /hpf Urine WBC 13 H (0-5) /hpf Ur Squamous Epith Cells 7 H (0-4) /hpf Urine Bacteria Few H (None) /hpf Urine Mucus Many H (None) /hpf Assessment and Plan (1) Acute pain Current Visit: Yes Status: Acute Code(s): R52 - PAIN, UNSPECIFIED SNOMED Code(s): 157582434 (2) GERD (gastroesophageal reflux disease) Current Visit: No Status: Acute Code(s): K21.9 - GASTRO-ESOPHAGEAL REFLUX DISEASE WITHOUT ESOPHAGITIS SNOMED Code(s): 156194327 (3) Nausea and vomiting Current Visit: No Status: Acute Code(s): R11.2 - NAUSEA WITH VOMITING, UNSPECIFIED SNOMED Code(s): 20496841 (4) Current Visit: No Status: Acute Code(s): Z34.90 - ENCNTR FOR SUPRVSN OF NORMAL , UNSP, UNSP TRIMESTER SNOMED Code(s): 06999687 Plan: The patient was admitted for 23-hour observation with aggressive rehydration and plans to strain the urine for possible nephrolithiasis. Given her significant pain, PRODUCTION ASSEMBLY SUPERVISOR was started to manage this with Dilaudid. She additionally was given antiemetics to include Reglan and Zofran. A dose of IV pantoprazole has been provided. We will continue with cautious observation and hopefully have the intention of discharging within 24 hours should patient's symptoms improve.
--- NOTE | 2023-12-07 10:04 | P.DS ---
Providers Date of admission: 12/06/23 14:40 Expected date of discharge: 12/07/23 Attending physician: Tyrone Hatfield Primary care physician: Stated None - Discharge Diagnosis(es) (1) Acute pain Current Visit: Yes Status: Acute (2) GERD (gastroesophageal reflux disease) Current Visit: No Status: Acute (3) Nausea and vomiting Current Visit: No Status: Acute (4) Current Visit: No Status: Acute Hospital Course: The patient did continue to have moderate pain with nausea and vomiting after admission but this resolved overnight. She denies having seen a stone pass or caught in the urinary strainer. She has not required any pain medication for multiple hours and feels significantly improved this morning. She therefore was deemed stable for discharge and was discharged home to follow-up in the office in 2 weeks for recheck. Discharge medications included a prescription for Tylenol 3, 1-2 p.o. every 6 hours as needed pain, #12 dispensed with no refills. She has already had a prescription sent for omeprazole 20 mg daily. She was instructed to call for any significant increases in symptoms or any other concerns and understood these instructions. 1 dose of IV Rocephin was provided prior to discharge to prophylax against the possibility of urinary tract infection/pyelonephritis while the urine culture is being completed over the next 24 to 48 hours. Procedures: #1. IV hydration #2. IV pain control #3. Antibiotic prophylaxis Patient Condition at Discharge: Stable Plan - Discharge Summary New Discharge Prescriptions: No Action Famotidine [Pepcid] 40 mg PO HS Vit No.179/Iron/Folic [ Tablet] 1 tab PO DAILY Docusate [Colace] 100 mg PO DAILY PRN PRN Reason: Constipation Discharge Medication List Famotidine [Pepcid] 40 mg PO HS 10/06/20 [History] Docusate [Colace] 100 mg PO DAILY PRN 12/06/23 [History] Vit No.179/Iron/Folic [ Tablet] 1 tab PO DAILY 12/06/23 [History] Follow up Appointment(s)/Referral(s): Tyrone Hatfield MD [STAFF PHYSICIAN] - 2 Weeks Discharge Disposition: HOME SELF-CARE
== END 2023-12-07 11:30 | disposition home or self-care (01) ==
LOC: FBPOP 11:18 → 4FBP 14:40
PROVIDERS: ADMIT Obstetrics & Gynecology; ATTEND Obstetrics & Gynecology
DX: O99.282 Endocrine, nutritional and metabolic diseases complicating pregnancy, second trimester (principal); E86.0 Dehydration; O21.9 Vomiting of pregnancy, unspecified; O99.612 Diseases of the digestive system complicating pregnancy, second trimester; K21.00 Gastro-esophageal reflux disease with esophagitis, without bleeding; O99.891 Other specified diseases and conditions complicating pregnancy; R10.9 Unspecified abdominal pain; Z3A.14 14 weeks gestation of pregnancy
CPT/HCPCS: 36415; 76770; 80053; 81001; 85025; 87086; 96361; 96365; 96375; 96376; 99214

== ENCOUNTER → 2024-02-26 | Outpatient (CLI) | payer BC ==
[2024-02-26 19:11] LABS: HCT 33.3 % (37.2-46.3); HGB 10.8 g/dL (12.0-15.0); MCH 31.4 pg (27.0-32.0); MCHC 32.4 g/dL (32.0-37.0); MCV 96.8 FL (80.0-97.0); Mean Platelet Volume 10.8 FL (9.5-12.2); NRBC Per 100 WBC 0 X 10*3/uL (0.00-0.01); Platelet Count 202 X 10*3/uL (140-440); RBC 3.44 X 10*6/uL (4.10-5.20); RDW 13.2 % (11.5-14.5); WBC 10.31 X 10*3/uL (4.50-10.00)
== END | disposition home or self-care (01) ==
LOC: LABWHC1 11:58
PROVIDERS: ATTEND Obstetrics & Gynecology
DX: Z36.9 Encounter for antenatal screening, unspecified (principal)
CPT/HCPCS: 36415; 82950; 85027

== ENCOUNTER 2024-03-03 12:11 | Outpatient (CLI) | payer BC ==
[2024-03-03] MEDS: LACTATED RINGERS 1,000 ML IV ONE (12:38)
[2024-03-03] MEDS: ONDANSETRON 4 MG/2 ML VIAL IVP STA (12:40)
[2024-03-03] MEDS: FAMOTIDINE 20 MG/2 ML VIAL IV STA (12:45)
[2024-03-03 12:59] VITALS: BP 113/60; PULSE 85; RESP 18; TEMP 98.1
[2024-03-03 13:33] LABS: Amorphous Sediment,Urine Few /hpf; Appearance,Urine Turbid (Clear); Bilirubin,Urine Negative (Negative); Blood,Urine Negative (Negative); Color,Urine Light Orange; Glucose,Urine (UA) Negative (Negative); Ketones,Urine 2+ (Negative); Leukocyte Esterase,Urine Negative (Negative); Mucus,Urine Many /hpf; Nitrite,Urine Negative (Negative); PH, Urine 5.5 (5.0-8.0); Protein,Urine 1+ (Negative); Specific Gravity,Urine 1.026 (1.001-1.035); Urobilinogen,Urine <2.0 mg/dL (<2.0)
[2024-03-03] MEDS: METOCLOPRAMIDE 5 MG/ML 2 ML VIAL IVP STA (13:53)
--- NOTE | 2024-05-10 15:40 | P.MSEPDOC ---
Presenting Problems - Arrival Data Date of Arrival on Unit: 03/03/24 Time of Arrival on Unit: 12:11 Mode of Transport: Ambulatory - Complaint OB-Reason for Admission/Chief Complaint: Acute Nausea/Vomiting Comment: nausea, vomiting, diarrhea, stomache cramping Medical History - Information : 1 Para: 0 Term: 0 : 0 Abortions: Spontaneous or Elective: 0 Number of Living Children: 0 - Gestational Age Gestational Age by MARI (wks/days): 27 Weeks and 0 Days - History Comment: quit smoking during 1st trimester Review of Systems - Review of Systems Constitutional: No problems Breast: No problems ENT: No problems Cardiovascular: No problems Respiratory: No problems Gastrointestinal: Diarrhea, Pain Genitourinary: No problems Musculoskeletal: No problems Neurological: No problems Skin: No problems Vital Signs - Temperature Temperature: 98.1 F Temperature Source: Temporal Artery Scan - Pulse Right Pulse Oximetery Pulse Rate: 85 Pulse Assessment Method: Pulse Oximetry - Respirations Respiratory Rate: 18 Oxygen Delivery Method: Room Air O2 Sat by Pulse Oximetry: 98 - Blood Pressure Right Arm Blood Pressure: 113/60 Blood Pressure Mean: 77 Blood Pressure Source: Automatic Cuff Medical Screen Scoring - Assessment - Baby A Baseline FHR: 150 Heart Rate - NICHD Category: Category I (Normal) Physician Notification - Physician Notified Physician Notified Date: 03/03/24 Physician Notified Time: 12:30 Physician: Indy Mane Order Received: Yes (IV fluid bolus, zofran, pepcid, called back and reglan given which helped) Maternal Triage Index - Maternal Triage Index Presenting for scheduled procedure w/no complaint: No - Stat/Priority 1 Stat Priority 1: No - Urgent/Priority 2 Urgent Priority 2: No - Prompt/Priority 3 Prompt Priority 3: No - Non-Urgent/Priority 4 Non-Urgent Priority 4: Yes Criteria Met for Priority 4: Nausea/vomiting/diarrhea Disposition - Disposition OB Disposition: Discharge to home Discharge Date: 03/03/24 Discharge Time: 15:30 I agree with the RN Medical Screening Exam: Yes Physician's MSE Comment: I have neither seen nor examined the patient Case reviewed; plan agreed upon as documented in EMR&OBIX.: Yes Diagnosis: LATE VOMITING OF
== END 2024-03-03 15:30 | disposition home or self-care (01) ==
LOC: FBPOP 12:11
PROVIDERS: ATTEND Obstetrics & Gynecology
DX: O21.2 Late vomiting of pregnancy (principal); O99.332 Smoking (tobacco) complicating pregnancy, second trimester; F17.210 Nicotine dependence, cigarettes, uncomplicated; Z3A.27 27 weeks gestation of pregnancy
CPT/HCPCS: 99214; 96361; 96374; 96375; 81001; J2765; J2405; J3490

== ENCOUNTER 2024-05-22 10:10 | Outpatient (CLI) | payer BC ==
[2024-05-22 10:46] LABS: Appearance,Urine Clear (Clear); Bacteria,Urine Rare /hpf; Bilirubin,Urine Negative (Negative); Blood,Urine Small (Negative); Color,Urine Yellow; Glucose,Urine (UA) Negative (Negative); Ketones,Urine Negative (Negative); Leukocyte Esterase,Urine Negative (Negative); Mucus,Urine Few /hpf; Nitrite,Urine Negative (Negative); PH, Urine 6.5 (5.0-8.0); Protein,Urine 1+ (Negative); RBC,Urine 12 /hpf (0-5); Specific Gravity,Urine 1.022 (1.001-1.035); Squamous Epithelial Cell,Urine 5 /hpf (0-4); Urobilinogen,Urine <2.0 mg/dL (<2.0); WBC,Urine 2 /hpf (0-5)
[2024-05-22] MEDS: LACTATED RINGERS 1,000 ML IV ONE (11:12)
[2024-05-22] MEDS: ACETAMINOPHEN IV (For NPO) 1,000 MG in EMPTY BAG 1 BAG IVPB ONE (11:13)
[2024-05-22] MEDS: OSELTAMIVIR 75 MG CAP PO SCH (11:23)
[2024-05-22 11:50] VITALS: BP 129/82; PULSE 100; RESP 16; TEMP 98.1
--- NOTE | 2024-06-08 00:01 | P.MSEPDOC ---
Presenting Problems - Arrival Data Date of Arrival on Unit: 05/22/24 Time of Arrival on Unit: 10:10 Mode of Transport: Ambulatory - Complaint OB-Reason for Admission/Chief Complaint: Pain Comment: Pt states she just tested positive for Influenza A at a walk in clinic before coming to triage. Pt states she complained about shooting pain in pelvis and they told her to come to triage. Medical History - Information : 1 Para: 0 - Gestational Age Gestational Age by MARI (wks/days): 38 Weeks and 3 Days - History Comment: Influenza A Review of Systems - Review of Systems Constitutional: No problems Breast: No problems ENT: Sore throat, Cough, Nasal congestion Cardiovascular: No problems Respiratory: No problems Gastrointestinal: No problems Genitourinary: No problems Musculoskeletal: No problems Neurological: No problems Skin: No problems Vital Signs - Temperature Temperature: 98.1 F Temperature Source: Temporal Artery Scan - Pulse Right Sitting Brachial Pulse Rate: 100 Pulse Assessment Method: Automatic Cuff - Respirations Respiratory Rate: 16 Oxygen Delivery Method: Room Air O2 Sat by Pulse Oximetry: 99 - Blood Pressure Right Arm Sitting Blood Pressure: 129/82 Blood Pressure Mean: 97 Blood Pressure Source: Automatic Cuff Medical Screen Scoring - Assessment - Baby A Baseline FHR: 140 Heart Rate - NICHD Category: Category I (Normal) NST: Reactive Physician Notification - Physician Notified Physician Notified Date: 05/22/24 Physician Notified Time: 11:00 Physician: Tyrone Hatfield Order Received: Yes - Notification Comment Comment: Spk c\Dr. Hatfield, advsd , 38.2, + Influenza A, was sent from walk in clinic r/t subrapubic pain, UA results reviewed, Cat 1 FHT, reactive NST, reviewed pts complaints, orders rec'd for 1 L LR, Ofirmev and tamiflu. Script for tamiflu will be sent to pts pharmacy. Pt to be discharged home following infusion. Maternal Triage Index - Maternal Triage Index Presenting for scheduled procedure w/no complaint: No - Stat/Priority 1 Stat Priority 1: No - Urgent/Priority 2 Urgent Priority 2: No - Prompt/Priority 3 Prompt Priority 3: No - Non-Urgent/Priority 4 Non-Urgent Priority 4: Yes Criteria Met for Priority 4: Discomforts of & influenza A + Disposition - Disposition OB Disposition: Discharge to home, Written follow up instructions reviewed Discharge Date: 05/22/24 Discharge Time: 11:50 I agree with the RN Medical Screening Exam: Yes Physician's MSE Comment: I have neither seen nor examined the patient. Case reviewed; plan agreed upon as documented in EMR&OBIX.: Yes Diagnosis: RELATED CONDITIONS, UNSPECIFIED, THIRD TRIMESTER
== END 2024-05-22 11:50 | disposition home or self-care (01) ==
LOC: FBPOP 10:10
PROVIDERS: ATTEND Obstetrics & Gynecology
DX: O99.333 Smoking (tobacco) complicating pregnancy, third trimester (principal); O26.93 Pregnancy related conditions, unspecified, third trimester; Z3A.38 38 weeks gestation of pregnancy
CPT/HCPCS: 59025; 99214; 96361; 96365; 81001; J0131

== ENCOUNTER 2024-11-03 17:17 | Emergency (ER) | payer BC ==
[2024-11-03] MEDS: MORPHINE SULFATE 4 MG/ML SYRINGE IM STA ×2 (18:57→19:57)
--- NOTE | 2024-11-03 19:30 | CT ---
EXAMINATION TYPE: CT knee RT wo con DATE OF EXAM: 11/03/2024 7:26 PM COMPARISON: None. CLINICAL INDICATION: Female, 29 years old with history of pain; PHH, Right knee pain from injury whil e playing volleygrass TECHNIQUE: Axial images were obtained of the CT knee RT wo con, Additional coronal and sagittal refor matted images and soft tissue and bone window were obtained for review. 3-D reconstruction was create d on a separate workstation. CT DLP: 141.8 mGycm, Automated exposure control for dose reduction was used. FINDINGS: There is no evidence of fracture, subluxation, or dislocation. No significant soft tissue swelling or joint effusion is identified. No focal muscular atrophy or edema is identified. No radiop aque foreign body identified. IMPRESSION: No evidence of fracture. [facility], , 11/03/2024 7:28 PM
--- NOTE | 2024-11-03 19:49 | ED ---
General Adult HPI - General Chief complaint: Extremity Injury, Lower Stated complaint: Right knee pain Time Seen by Provider: 11/03/24 17:55 Source: patient, RN notes reviewed, old records reviewed Mode of arrival: ambulatory Limitations: no limitations - History of Present Illness Initial comments: 29-year-old female who presents emergency department complaining of right knee pain. Hyperextended playing volleyball. Initially was able to ambulate on it but it got worse. Significant pain with full flexion or extension. Denies any sensory deficits. No obvious bony traumatic injury. Presents for further evaluation at this time. No other obvious injury otherwise. Injury occurred at approximately noon. Presents for evaluation at approximately 6 PM. - Related Data Home Medications Medication Instructions Recorded Confirmed Vit No.179/Iron/Folic 1 tab PO DAILY 12/06/23 05/24/24 [ Tablet] Omeprazole 40 mg PO DAILY 03/03/24 05/24/24 Amoxicillin 500 mg PO Q12HR 05/24/24 05/24/24 Previous Rx's Medication Instructions Recorded Ibuprofen [Motrin] 600 mg PO Q6HR PRN #30 tab 05/25/24 Ibuprofen [Motrin] 800 mg PO Q8HR #30 tab 05/25/24 Allergies Allergy/AdvReac Type Severity Reaction Status Date / Time No Known Allergies Allergy Verified 11/03/24 17:22 Review of Systems ROS Statement: Those systems with pertinent positive or pertinent negative responses have been documented in the HPI. Review of Systems: CONST: Denies fever EYES: Denies blurry vision ENT: Denies nasal congestion C/V: Denies Chest pain RESP: Denies shortness of breath GI: Denies abdominal pain : Denies dysuria SKIN: Denies rash. MSK: Endorses right knee pain NEURO: Denies headache ROS Other: All systems not noted in ROS Statement are negative. Past Medical History Past Medical History: GERD/Reflux History of Any Multi-Drug Resistant Organisms: None Reported Past Surgical History: No Surgical Hx Reported Additional Past Surgical History / Comment(s): scopes Past Anesthesia/Blood Transfusion Reactions: No Reported Reaction Past Psychological History: Anxiety Smoking Status: Former smoker Past Alcohol Use History: Occasional Past Drug Use History: Marijuana - Past Family History Father Family Medical History: Diabetes Mellitus Additional Family Medical History / Comment(s): type 2 General Exam - General Exam Comments Initial Comments: General: Appears in mild distress secondary to pain. HEAD: Normal with no signs of head trauma. EYES: EOMI. ENT: Hearing grossly intact. RESPIRATORY: No respiratory distress. C/V: Regular rate and rhythm. ABD: Abdomen is nondistended. EXT: Patient has right knee pain on palpation, primarily the medial aspect. Does not tolerate much of any exam. He is able to flex and extend it although not full flexion or extension. Able to hold against gravity and full extension without issue. Neurovascular intact throughout the right lower extremity. No obvious deficit or injury at this time. No tenderness to the patella. SKIN: No rashes or lesions observed on exposed skin. NEURO: Alert and oriented. Limitations: no limitations Course Vital Signs 11/03/24 17:20 Temperature 98.3 F Pulse Rate 80 Respiratory 20 Rate Blood Pressure 112/74 O2 Sat by Pulse 97 Oximetry Medical Decision Making - Medical Decision Making Was pt. sent in by a medical professional or institution (, PA, RECORDING STUDIO SET UP WORKER, urgent care, hospital, or halfway...) When possible be specific @ -No Did you speak to anyone other than the patient for history (EMS, parent, family, police, friend...)? What history was obtained from this source @ -No Did you review nursing and triage notes (agree or disagree)? Why? @ -I reviewed and agree with nursing and triage notes Were old charts reviewed (outside hosp., previous admission, EMS record, old EKG, old radiological studies, urgent care reports/EKG's, halfway records)? Report findings @ -No old charts were reviewed Differential Diagnosis (chest pain, altered mental status, abdominal pain women, abdominal pain men, vaginal bleeding, weakness, fever, dyspnea, syncope, headache, dizziness, GI bleed, back pain, seizure, CVA, palpatations, mental health, musculoskeletal)? @ -Right knee strain, right knee sprain, ligament injury, right knee fracture. This list is not all-inclusive. EKG interpreted by me (3pts min.). @ -None done X-rays interpreted by me (1pt min.). @ -None done CT interpreted by me (1pt min.). @ -CT revealed no obvious acute injury. U/S interpreted by me (1pt. min.). @ -None done What testing was considered but not performed or refused? (CT, X-rays, U/S, labs)? Why? @ -None What meds were considered but not given or refused? Why? @ -None Did you discuss the management of the patient with other professionals (professionals i.e. , JOSHUA, RECORDING STUDIO SET UP WORKER, lab, RT, psych nurse, social services designee, refrigeration engineering teacher, teacher, contract officer, patient case manager)? Give summary @ -No Was smoking cessation discussed for >3mins.? @ -No Was critical care preformed (if so, how long)? @ -No Were there social determinants of health that impacted care today? How? (Homelessness, low income, unemployed, alcoholism, drug addiction, transportation, low edu. Level, literacy, decrease access to med. care, senior care, rehab)? @ -No Was there de-escalation of care discussed even if they declined (Discuss DNR or withdrawal of care, Hospice)? DNR status @ -No What co-morbidities impacted this encounter? (DM, HTN, Smoking, COPD, CAD, Cancer, CVA, ARF, Chemo, Hep., AIDS, mental health diagnosis, sleep apnea, morbid obesity)? @ -None Was patient admitted / discharged? Hospital course, mention meds given and route, prescriptions, significant lab abnormalities, going to OR and other pertinent info. @ -Presents for right knee injury. Believes she hyperextended it approximately 6 hours ago. Has difficulty with movement of it at this time as well as with bearing weight. Discussed with the patient we will obtain CT imaging as she is given morphine for analgesia. Vital signs within acceptable limits. Exam relatively unremarkable except for pain. She was in agreement this plan. CT imaging showed no obvious acute traumatic injury. I updated the patient at this time. She will be placed in a knee immobilizer. She already has crutches for home. Given a work note orthopedics to follow-up in the next few days. She likely requires MRI considering concern for internal derangement of the right knee. She was in agreement this plan. Strict return precautions discussed. Given a starter pack of Tylenol 3 for home. I instructed the patient to follow up with their PCP in the next 1-3 days. I provided contact information for follow up with orthopedic surgery. I explained that the patient should return to the emergency department if they experience any worsening symptoms. Strict return precautions were discussed with the patient. The patient expressed understanding of these instructions. I answered all questions that the patient had. The patient was discharged home in good condition with their prescriptions and follow up information. Undiagnosed new problem with uncertain prognosis? @ -No Drug Therapy requiring intensive monitoring for toxicity (Heparin, Nitro, Insulin, Cardizem)? @ -No Were any procedures done? @ -No Diagnosis/symptom? @ -Right knee sprain Acute, or Chronic, or Acute on Chronic? @ -Acute Uncomplicated (without systemic symptoms) or Complicated (systemic symptoms)? @ -Uncomplicated Side effects of treatment? @ -No Exacerbation, Progression, or Severe Exacerbation? @ -No Poses a threat to life or bodily function? How? (Chest pain, [place], [place], pneumonia, PE, COPD, DKA, ARF, appy, cholecystitis, CVA, Diverticulitis, Homicidal, Suicidal, threat to staff... and all critical care pts) @ -Unlikely at this time Disposition Clinical Impression: Right knee sprain Disposition: HOME SELF-CARE Condition: Good Instructions (If sedation given, give patient instructions): Knee Sprain (ED) Is patient prescribed a controlled substance at d/c from ED?: No Referrals: Jason Gayle MD [Primary Care Provider] - 1-2 days Tami Naqvi DO [Doctor of Osteopathic Medicine] - 1-2 days Time of Disposition: 19:49
[2024-11-03] MEDS: ACET/COD 300 MG/30 MG STARTER PACK TAB BTL PO STA (19:59)
[2024-11-03 20:16] VITALS: BP 105/71; PULSE 78; RESP 17; TEMP 99.3
== END 2024-11-03 20:16 | disposition home or self-care (01) ==
LOC: EC 17:17
DX: S83.91XA Sprain of unspecified site of right knee, initial encounter (principal); Z87.891 Personal history of nicotine dependence; X58.XXXA Exposure to other specified factors, initial encounter; Y93.68 Activity, volleyball (beach) (court)
CPT/HCPCS: 73700; 99283; 96372 ×2; J2270